=== PATIENT | female | born 1960 | race Caucasian/White ===

== ENCOUNTER 2020-01-21 03:47 | Emergency (ER) | payer OTHER, SELFPAY ==
--- OUTSIDE RECORDS SUMMARY | 2020-01-21 03:50 | XMS REPORT ---
:1960 Author Organization [facility] t Address [address] [place] [address] Care Team Providers Name Role Phone Unavailable Unavailable Unavailable Problems This patient has no known problems. Allergies, Adverse Reactions, Alerts This patient has no known allergies or adverse reactions. Medications This patient has no known medications. Results Test Description Test Time Test Comments Text Results Atomic Results Result Comments CT, MAXILLOFACIAL AREA, 2019-06-13 08:03:00 FINAL REPO RT PATIENT ID: WITHOUT IV CONTRAST [id number] History: Fa cial numbness, disorder of hypoglossal nerve Comparison studies: Neck CT 01/02/2019. Brain MRI 01/02/2019. Technique:Axial images were obtained through the maxillofacial region.Coronal and sagittal images reconstructe d from the axial data. Dose modulation, iterative reconstruction, and/or weigh t based adjustment of the mA/k V was utilized to reduce the radiation dose to as low as reasonably achievable. Radiation dose: Total DLP: 2 52 mGy*cm. Estimated effective dose: DLP x 0.015 Intravenou s contrast: None Findings: Evaluation of the soft tissu es and vasculature are limited by the absence of IV contrast. Soft tissues: No gross abnormalit ies. Bones: No fractures or bony abnormalities. No lytic or blastic skull base lesion. Normal-appearing hypoglossal canals without osseous lesio n or bone erosion. Orbits: No hue ss abnormalities. Dentition A f ew absentee with a few dental fillings, root canals and le ft maxillary premolar dental implant. Subtle periapical lucency at the right second ventricular molar, unchanged . Middle ear mastoid cavities: Clear. Paranasal sinuses:Mil d right frontal, frontal ethmo idal recess and right anterior ethmoid mucosal thickening. Remaining sinuses are clear. Included cervical spine: Mil dly degenerated disks with small disc osteophyte complexes fr om C3 to C6 without significant canal stenosis. IMPRESSION: 1.No osseous skull base lesi on or other abnormalities to account for patient's sympto ms of facial numbness and hypoglossal nerve disorder o n this noncontrast exam. 2.Unchanged mild chronic nonspecific right frontal-ethmoidal mucosal thickening. Signed: Conrad Frederick Verified Date/Time: 06/13/2019 08:03 :56 Reading Location: [facility] Room [address] [place] [address] 08:0 3 AM
--- OUTSIDE RECORDS SUMMARY | 2020-01-21 03:50 | XMS REPORT | Summary of Care ---
:1960 Author Organization [facility] [place] [address] Care Team Providers Name Role Phone [facility] Primary Care Provider Reason for Visit Reason Comments Follow Up Encounter Details Date Type Department Care Team Description 06/12/[address] [facility] Follow Up Medicine Neurology [address], [address] [place] [address] [place] [address] [phone] Allergies Active Allergy Reactions Severity Noted Date Comments Hydrocodone Itching Low 11/25/2018 documented as of this encounter (statuses as of 06/12/2019) Medications Medication Sig Dispensed Refills Start Date End Date Status amphetamine-dextroamphe Take 30 mg by 0 Active tamine (ADDERALL) 30 MG mouth daily. 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 Never 11/25/2018 How many drinks containing alcohol do you have on a typical Not asked day when you are drinking? How often do you have six or more drinks on one occasion? No t asked Sex Assigned at Date Recorded Not on file Job Start Date Occupation Industry Not on file Not on file Not on file Travel History Travel Start Travel End No recent travel history available. documented as of this encounter Last Filed Vital Signs Vital Sign Reading Time Taken Comments Blood Pressure 177/92 06/12/2019 4:12 PM CDT Pulse 75 06/12/2019 4:12 PM CDT Temperature - - Respiratory Rate - - Oxygen Saturation - - Inhaled Oxygen Concentration - - Weight 81.2 kg (179 lb) 06/12/2019 4:12 PM CDT Height 167.6 cm (5' 6") 06/12/2019 4:12 PM CDT Body Mass Index 28.89 06/12/2019 4:12 PM CDT documented in this encounter Progress Notes Ted Rodriguez MD - 06/12/2019 4:00 PM CDT CC: Chief Complaint Patient presents with Follow Up KALYAN 02/21/19 Accompanied by: Self HPI: 58 y.o.female presenting for evaluation of R facial and tongue numbness since Aug 2018. Interim hx: No change in symptoms since last visit CT face performed today but official read pending today. this Wednesday. Planning on going to [facility] next week. Not interested in meds at this time Initial hx: She states she is unable to touch roof of mouth with tongue. When she eats, food caught in corners of mouth Also feels that she's drooling Reports facial itching on R side of face "like it's trying to wake up". Feels that she's producing more saliva. "I feel like my tongue is numb". Face feels "tight"- "it feels like botox". Exacerbation with anger. Facial tightness migrates. Exacerbated with talking. If she sticks her tongue out it feels "tight", hard to protrude. Denies change in speech No abnormal tearing No shooting pain in face No difficulty turning head Denies M[place], no diurnal pattern Wonders if she had a sore throat at symptom onset in Aug 2018 Overall, unchanged symptoms since Aug 2018. Has not taken meds for these symptoms. Took adderall for cognitive concerns which was ineffective and she has since discontinued. She later stated that she intermittently takes it to avoid snacking andwith extreme fatigue. No vitamins/herbal supplements, no recent travel. She believes aspirin helps her symptoms Odynophagia: no Dysphagia: no Hearing loss/hyperacusis: no Ear pain: no Taste: unchanged Smell: unchanged Tinnitus (pulsatile tinnitus): rare Vertigo: no Occ dizziness: attributes to lack of sleep (rotates q2h)- intermittent Neck movement: no change Muscle twitching/spasms: R eye x several months Vision change: denies, will see national secretary in 3 wks Dental issues: no Weight loss/fever/chills: no Sympathetic/autonomic: no change Occasional anxiety associated with CP. Not on therapy. Referred from Dr. Goode: Seen on 11/25/18 B wwo with incidental small L frontal DVA. PMH/PSH: Past Medical History: Diagnosis Date Stomach ulcer No past surgical history on file. ROS: General: no fevers or chills, no heat or cold intolerance, no subjective weight loss, no fatigue HEENT: no changes in vision, no sore throat, no changes in hearing, no tinnitus, no nasal drainage CV: no chest pain, no palpitations, no lightheadedness, no PND, no orthopnea, no LE swelling, no claudication Pulm: no shortness of breath, no cough, no hemoptysis GI: no nausea, no vomiting, no abdominal pain, no constipation, no diarrhea, no melena, no hematochezia, no dysphagia, no heartburn Skin: no rash Neuro: see HPI Musculoskeletal: no neck pain, no back pain Heme: no easy bruising, no bleeding from the gums Endo: No polyuria or polydypsia Psych: no depression or anxiety Meds/All: Current Outpatient Medications on File Prior to Visit Medication Sig Dispense Refill amphetamine-dextroamphetamine (ADDERALL) 30 MG tablet Take 30 mg by mouth daily. No current facility-administered medications on file prior to visit. 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 Gen: awake, alert, NAD Pt left without being examined Labs/Imaging: MRB wwo 12/2018: 1. Incidental small left frontal DVA of no clinical significance. 2. Otherwise, no intracranial or skull base abnormalities. CT neck 12/2018: No mass or abnormalities identified in the neck to account for patient's symptoms of facial numbness, globus or hypoglossal nerve palsy. MRA H&N 02/2019: No cervical or intracranial MRA abnormalities. A/P: 58 y.o. female presenting for evaluation of R facial and tongue numbness since Aug 2018. Current symptoms and exam can be localized to the brainstem and area along the pathway of CN12 and 5 near the jaw. Recent MRI brain and MRA unrevealing. Ddx also includes trigeminal neuropathy. - CT face official read pending - Consider MRV H&N - Consider repeat MRB with thin cuts through the brainstem - Consider autoimmune panel, LDH, ESR, CRP, AZAM, SPEP - Consider LP - Optometry as previously scheduled - BP monitoring Pt left before all options discussed I personally spent a total of 15 minutes with the patient with 15 minutes spent in counseling and coordination of care. A discussion regarding diagnosis and treatment options was held. Ted Rodriguez MD documented in this encounter Plan of Treatment Health Maintenance Due Date Last Done Comments COLON CANCER SCREENING: COLONOSCOPY 1960 MAMMOGRAM ANNUAL 1960 TETANUS SHOT (ADULT) 1977 BMI FOLLOW UP PLAN 1980 HEPATITIS C SCREENING 1980 HIV SCREENING 1980 CERVICAL CANCER SCREENING 3 YEAR FOLLOW UP 1983 FLU VACCINE > 6 MONTHS 04/20/2019 documented as of this encounter Results Not on filedocumented in this encounter Visit Diagnoses Diagnosis Numbness of tongue - Primary Disturbance of skin sensation Right facial numbness Disturbance of skin sensation Hypoglossal nerve palsy Disorders of hypoglossal (12th) nerve documented in this encounter Insurance Payer Benefit Plan / Subscriber ID Effective Dates Phone Addre ss Type Group [facility] - xxxxxxxxxxx Effective for PO ROXIE X [id number] EPO [facility] [place] [address] documented as of this encounter
[2020-01-21] MEDS ORDERED: MORPHINE 4 MG/ML SYR ONE ×2 (04:29→05:29)
[2020-01-21] MEDS ORDERED: NA CHLORIDE 0.9% 1,000 ML ONE (04:29)
[2020-01-21] MEDS ORDERED: FAMOTIDINE 20 MG/2 ML VIAL IV ONE (04:29)
[2020-01-21] MEDS ORDERED: ONDANSETRON 4 MG/2 ML VIAL ONE (04:30)
[2020-01-21 04:43] LABS: Absolute Lymphocytes (CBC) 2.1 K/uL (0.7-4.9); Hematocrit 40.1 % (36.0-45.0); Lymphocytes % 20.8 % (15.3-44.8); MPV 7.6 fL (7.6-11.3); RBC Red Blood Cell Count 4.67 M/uL (3.86-4.86)
[2020-01-21 05:04] LABS: ALT/SGPT 17 U/L (12-78); AST/SGOT 13 U/L (15-37); Albumin 3.3 g/dL (3.4-5.0); Alkaline Phosphatase 84 U/L (45-117); BUN Blood Urea Nitrogen 18 mg/dL (7-18); Bicarbonate 27 mmol/L (21-32); Bilirubin Direct < 0.1 mg/dL (0-0.2); Bilirubin Total 0.1 mg/dL (0.2-1.0); Glucose Level 93 mg/dL (74-106); Lipase 132 U/L (73-393); Potassium 4.4 mmol/L (3.5-5.1); Protein, Total 7.4 g/dL (6.4-8.2); Sodium Level 143 mmol/L (136-145)
--- NOTE | 2020-01-21 06:38 | EDPHYS ---
Physician Documentation [facility] Name: Valerie Gandara Age: 59 yrs Sex: Female : 1960 Arrival Date: 01/21/2020 Time: 03:50 Bed 5 Private MD: ED Physician Yoni Valencia HPI: 01/20 04:19 This 59 yrs old Female presents to ER via Ambulatory with complaints of prabha Abdominal Pain. 04:19 The patient presents with abdominal pain in the epigastric area, in the upper abdomen, prabha abdominal distention in the upper abdomen, in the lower abdomen. Onset: The symptoms/episode began/occurred 14 day(s) ago. The symptoms do not radiate. Associated signs and symptoms: Pertinent positives: nausea. The symptoms are described as constant, crampy, dull. Modifying factors: The symptoms are alleviated by nothing, the symptoms are aggravated by nothing. Severity of pain: At its worst the pain was moderate in the emergency department the pain is unchanged. The patient has experienced similar episodes in the past, several times. Historical: - Allergies: 04:22 No Known Allergies; lp1 - Home Meds: 04:19 lorazepam 1 mg Oral tab 2 times per day [Active]; Adderall XR Oral [Active]; lp1 - PMHx: 04:22 "bleeding ulcers"; lp1 - PSHx: 04:19 lap band; lp1 - Immunization history:: Adult Immunizations up to date. - Social history:: Smoking status: Patient denies any tobacco usage or history of. - Family history:: not pertinent. ROS: 04:19 Constitutional: Negative for fever, chills, and weight loss, Eyes: Negative for injury, prabha pain, redness, and discharge, ENT: Negative for injury, pain, and discharge, Neck: Negative for injury, pain, and swelling, Cardiovascular: Negative for chest pain, palpitations, and edema, Respiratory: Negative for shortness of breath, cough, wheezing, and pleuritic chest pain, Back: Negative for injury and pain, : Negative for injury, bleeding, discharge, and swelling, MS/Extremity: Negative for injury and deformity, Skin: Negative for injury, rash, and discoloration, Neuro: Negative for headache, weakness, numbness, tingling, and seizure, Psych: Negative for depression, anxiety, suicide ideation, homicidal ideation, and hallucinations, Allergy/Immunology: Negative for hives, rash, and allergies, Endocrine: Negative for neck swelling, polydipsia, polyuria, polyphagia, and marked weight changes, Hematologic/Lymphatic: Negative for swollen nodes, abnormal bleeding, and unusual bruising. 04:19 Abdomen/GI: Positive for abdominal pain, nausea, of the epigastric area, right upper quadrant and left upper quadrant. Exam: 04:19 Constitutional: This is a well developed, well nourished patient who is awake, alert, prabha and in no acute distress. Head/Face: Normocephalic, atraumatic. Eyes: Pupils equal round and reactive to light, extra-ocular motions intact. Lids and lashes normal. Conjunctiva and sclera are non-icteric and not injected. Cornea within normal limits. Periorbital areas with no swelling, redness, or edema. ENT: Nares patent. No nasal discharge, no septal abnormalities noted. Tympanic membranes are normal and external auditory canals are clear. Oropharynx with no redness, swelling, or masses, exudates, or evidence of obstruction, uvula midline. Mucous membranes moist. Neck: Trachea midline, no thyromegaly or masses palpated, and no cervical lymphadenopathy. Supple, full range of motion without nuchal rigidity, or vertebral point tenderness. No Meningismus. Chest/axilla: Normal chest wall appearance and motion. Nontender with no deformity. No lesions are appreciated. Cardiovascular: Regular rate and rhythm with a normal S1 and S2. No gallops, murmurs, or rubs. Normal PMI, no JVD. No pulse deficits. Respiratory: Lungs have equal breath sounds bilaterally, clear to auscultation and percussion. No rales, rhonchi or wheezes noted. No increased work of breathing, no retractions or nasal flaring. Back: No spinal tenderness. No costovertebral tenderness. Full range of motion. Female : Normal external genitalia. Skin: Warm, dry with normal turgor. Normal color with no rashes, no lesions, and no evidence of cellulitis. MS/ Extremity: Pulses equal, no cyanosis. Neurovascular intact. Full, normal range of motion. Neuro: Awake and alert, GCS 15, oriented to person, place, time, and situation. Cranial nerves II-XII grossly intact. Motor strength 5/5 in all extremities. Sensory grossly intact. Cerebellar exam normal. Normal gait. Psych: Awake, alert, with orientation to person, place and time. Behavior, mood, and affect are within normal limits. 04:19 Abdomen/GI: Inspection: abdomen appears normal, Bowel sounds: normal, Palpation: mild abdominal tenderness, moderate abdominal tenderness, in the epigastric area, right upper quadrant and left upper quadrant, Liver: no appreciated palpable abnormalities, Hernia: not appreciated. 04:35 ECG was reviewed by the Attending Physician. [facility] Vital Signs: 04:15 Weight 88.45 kg (R); Height 5 ft. 6 in. (167.64 cm); Pain 9/10; lp1 04:18 BP 137 / 77; Pulse 58; Resp 17 S; Temp 98.3(O); Pulse Ox 99% on R/A; Weight 86.18 kg; jd3 Height 5 ft. 6 in. (167.64 cm); Pain 7/10; 05:28 BP 152 / 79; Pulse 51; Resp 18 S; Pulse Ox 100% on R/A; jd3 06:59 BP 108 / 63; Pulse 52; Resp 16 S; Pulse Ox 95% on R/A; jd3 04:18 Body Mass Index 30.67 (86.18 kg, 167.64 cm) jd3 MDM: 04:13 Patient medically screened. [facility] 04:24 Differential diagnosis: bowel obstruction, cholecystitis, Cholelithiasis, prabha diverticulitis, gastritis, gastroesophageal reflux disease, non-specific abd pain, Peptic Ulcer Disease. Data interpreted: monitoring coordinator: rate is 58 beats/min, Pulse oximetry: on room air is 99 %. Test interpretation: by ED physician or midlevel provider: ECG, plain radiologic studies. Counseling: I had a detailed discussion with the patient and/or guardian regarding: the historical points, exam findings, and any diagnostic results supporting the discharge/admit diagnosis, lab results, radiology results. 04:25 Data reviewed: vital signs, nurses notes, lab test result(s), EKG, radiologic studies, [facility] CT scan, plain films. 05:47 Response to treatment: the patient's symptoms have markedly improved after treatment. prabha 06:33 ED course: abd pain, eipgastric, hx of band, labs all normal, ct abd and pel nad. [facility] 01/20 04:18 Order name: Basic Metabolic Panel; Complete Time: 05:37 [facility] 01/20 04:18 Order name: CBC with Diff; Complete Time: 05:37 [facility] 01/20 04:18 Order name: Creatinine for Radiology; Complete Time: 05:37 [facility] 01/20 04:18 Order name: Hepatic Function; Complete Time: 05:37 [facility] 01/20 04:18 Order name: Lipase; Complete Time: 05:37 [facility] 01/20 05:46 Order name: Troponin (emerg Dept Use Only): co epi pain , cp; Complete Time: 06:30 [facility] 01/20 04:18 Order name: Chest Single View XRAY [facility] 01/20 04:18 Order name: CT Abd/Pelvis - PO and IV Contrast [facility] 01/20 06:03 Order name: Urine Dipstick--Ancillary (enter results) ds4 01/20 04:18 Order name: IV Saline Lock; Complete Time: 04:31 [facility] 01/20 04:18 Order name: Labs collected and sent; Complete Time: 04:31 [facility] 01/20 04:18 Order name: EKG; Complete Time: 04:19 [facility] 01/20 04:18 Order name: EKG - Nurse/Tech; Complete Time: 04:30 [facility] EC:35 Rate is 65 beats/min. Rhythm is regular. QRS [place] is Normal. GA interval is normal. QRS prabha interval is normal. QT interval is normal. Q waves are Present in leads V1, V2, V3, V4. T waves are Normal. No ST changes noted. Clinical impression: Anterior WI - age indeterminate. Interpreted by me. Reviewed by me. Administered Medications: 04:36 Drug: NS 0.9% 1000 ml Route: IV; Rate: 1 bolus; Site: right antecubital; mg2 05:30 Follow up: Response: No adverse reaction; IV Status: Completed infusion; IV Intake: jd3 1000ml 04:37 Drug: Pepcid 20 mg Route: IVP; Site: right antecubital; mg2 05:10 Follow up: Response: No adverse reaction jd3 04:37 Drug: morphine 4 mg Route: IVP; Site: right antecubital; mg2 05:10 Follow up: Response: No adverse reaction; RASS: Alert and Calm (0) jd3 04:37 Drug: Zofran (Ondansetron) 4 mg Route: IVP; Site: right antecubital; mg2 05:11 Follow up: Response: No adverse reaction jd3 05:28 Drug: morphine 4 mg Route: IVP; Site: right antecubital; jd3 06:02 Follow up: Response: No adverse reaction; Marked relief of symptoms; RASS: Alert and mg2 Calm (0) Disposition: 01/21/20 06:37 Discharged to Home. Impression: Abdominal tenderness, Functional dyspepsia - hx gastric banding. - Condition is Stable. - Discharge Instructions: Abdominal Pain, Adult, Abdominal Pain, Adult, [id number]. - Prescriptions for Bentyl 20 mg Oral Tablet - take 1 tablet by ORAL route every 6 hours As needed; 20 tablet. Protonix 40 mg Oral Tablet, Delayed Release (E.C.) - take 1 tablet by ORAL route once daily; 20 tablet. Zofran 4 mg Oral Tablet - take 1 tablet by ORAL route every 12 hours As needed; 20 tablet. - Medication Reconciliation Form, Thank You Letter, Antibiotic Education, Prescription Opioid Use form. - Follow up: Private Physician; When: 2 - 3 days; Reason: Recheck today's complaints, Continuance of care, Re-evaluation by your physician. - Problem is new. - Symptoms have improved. Signatures: Dispatcher [employer] EDMS Yoni Valencia MD MD cha Pena, Laura RN RN lp1 Juan Alicea RN RN Buzz Rivera RN RN mg2 Corrections: (The following items were deleted from the chart) 04:22 04:19 Allergies: HYDROCODONE; lp1 lp1 04:22 04:19 PMHx: None; lp1 lp1 07:01 06:37 01/21/2020 06:37 Discharged to Home. Impression: Abdominal tenderness; Functional jd3 dyspepsia - hx gastric banding. Condition is Stable. Forms are Medication Reconciliation Form, Thank You Letter, Antibiotic Education, Prescription Opioid Use. Follow up: Private Physician; When: 2 - 3 days; Reason: Recheck today's complaints, Continuance of care, Re-evaluation by your physician. Problem is new. Symptoms have improved. prabha
--- NOTE | 2020-01-21 06:38 | ER ---
Nurse's Notes [facility] Name: Valerie Gandara Age: 59 yrs Sex: Female : 1960 Arrival Date: 01/21/2020 Time: 03:50 Bed 5 Private MD: Diagnosis: Abdominal tenderness;Functional dyspepsia-hx gastric banding Presentation: 01/20 04:15 Chief complaint: Patient states: Epigastric pain x 2 weeks; Denies any nausea, lp1 vomiting, diarrhea, fever; States "I feel like my lap band might have moved". Coronavirus screen: Proceed with normal triage. Ebola Screen: No symptoms or risks identified at this time. Risk Assessment: Do you want to hurt yourself or someone else? Patient reports no desire to harm self or others. Onset of symptoms was January 21, 2020. 04:15 Method Of Arrival: Ambulatory lp1 04:15 Acuity: PARMINDER 3 lp1 04:22 Initial Sepsis Screen: Does the patient meet any 2 criteria? No. Patient's initial lp1 sepsis screen is negative. Does the patient have a suspected source of infection? No. Patient's initial sepsis screen is negative. Historical: - Allergies: 04:22 No Known Allergies; lp1 - Home Meds: 04:19 lorazepam 1 mg Oral tab 2 times per day [Active]; Adderall XR Oral [Active]; lp1 - PMHx: 04:22 "bleeding ulcers"; lp1 - PSHx: 04:19 lap band; lp1 - Immunization history:: Adult Immunizations up to date. - Social history:: Smoking status: Patient denies any tobacco usage or history of. - Family history:: not pertinent. Screenin:22 Abuse screen: Denies threats or abuse. Denies injuries from another. Nutritional lp1 screening: No deficits noted. Tuberculosis screening: No symptoms or risk factors identified. Fall Risk None identified. Assessment: 04:43 General: Appears in no apparent distress. comfortable, Behavior is calm, cooperative. mg2 Pain: Complains of pain in epigastric area Pain currently is 8 out of 10 on a pain scale. Quality of pain is described as aching, Pain began gradually. Neuro: Level of Consciousness is awake, alert, obeys commands, Oriented to person, place, time, situation. Cardiovascular: Capillary refill < 3 seconds Patient's skin is warm and dry. Respiratory: Airway is patent Respiratory effort is even, unlabored, Respiratory pattern is regular, symmetrical. GI: Bowel sounds present X 4 quads. Abd is soft and non tender Reports epigastric pain. : No signs and/or symptoms were reported regarding the genitourinary system. EENT: No signs and/or symptoms were reported regarding the EENT system. Derm: Skin is intact, is healthy with good turgor, Skin is pink, warm \\T\\ dry. normal. Musculoskeletal: Circulation, motion, and sensation intact. Capillary refill < 3 seconds. 05:28 Reassessment: Patient and/or family updated on plan of care and expected duration. Pain jd3 level reassessed. Patient is alert, oriented x 3, equal unlabored respirations, skin warm/dry/pink. pt reporting continued pain. 05:47 Reassessment: patient sent to ct scan via wheelchair. mg2 06:59 Reassessment: Patient appears in no apparent distress at this time. Patient and/or d3 family updated on plan of care and expected duration. Pain level reassessed. Patient is alert, oriented x 3, equal unlabored respirations, skin warm/dry/pink. pt reporting understanding of discharge instructions, even and steady gait upon discharge. Patient states feeling better. Vital Signs: 04:15 Weight 88.45 kg (R); Height 5 ft. 6 in. (167.64 cm); Pain 9/10; lp1 04:18 BP 137 / 77; Pulse 58; Resp 17 S; Temp 98.3(O); Pulse Ox 99% on R/A; Weight 86.18 kg; jd3 Height 5 ft. 6 in. (167.64 cm); Pain 7/10; 05:28 BP 152 / 79; Pulse 51; Resp 18 S; Pulse Ox 100% on R/A; jd3 06:59 BP 108 / 63; Pulse 52; Resp 16 S; Pulse Ox 95% on R/A; jd3 04:18 Body Mass Index 30.67 (86.18 kg, 167.64 cm) jd3 ED Course: 03:50 Patient arrived in ED. ds1 04:11 Juan Alicea RN is Primary Nurse. jd3 04:13 Yoni Valencia MD is Attending Physician. prabha 04:17 Triage completed. lp1 04:17 Arm band placed on. lp1 04:35 Inserted saline lock: 20 gauge in right antecubital area, using aseptic technique. mg2 Blood collected. 04:39 No provider procedures requiring assistance completed. mg2 04:46 Chest Single View XRAY In Process Unspecified. EDMS 04:52 Patient has correct armband on for positive identification. mg2 06:05 CT Abd/Pelvis - PO and IV Contrast In Process Unspecified. EDMS 06:58 IV discontinued, intact, bleeding controlled, No redness/swelling at site. Pressure jd3 dressing applied. Administered Medications: 04:36 Drug: NS 0.9% 1000 ml Route: IV; Rate: 1 bolus; Site: right antecubital; mg2 05:30 Follow up: Response: No adverse reaction; IV Status: Completed infusion; IV Intake: jd3 1000ml 04:37 Drug: Pepcid 20 mg Route: IVP; Site: right antecubital; mg2 05:10 Follow up: Response: No adverse reaction jd3 04:37 Drug: morphine 4 mg Route: IVP; Site: right antecubital; mg2 05:10 Follow up: Response: No adverse reaction; RASS: Alert and Calm (0) jd3 04:37 Drug: Zofran (Ondansetron) 4 mg Route: IVP; Site: right antecubital; mg2 05:11 Follow up: Response: No adverse reaction jd3 05:28 Drug: morphine 4 mg Route: IVP; Site: right antecubital; jd3 06:02 Follow up: Response: No adverse reaction; Marked relief of symptoms; RASS: Alert and mg2 Calm (0) Intake: 05:30 IV: 1000ml; Total: 1000ml. jd3 Outcome: 06:37 Discharge ordered by . prabha 06:58 Discharged to home ambulatory, with family. jd3 06:58 Condition: stable 06:58 Discharge instructions given to patient, Instructed on discharge instructions, follow up and referral plans. medication usage, Demonstrated understanding of instructions, follow-up care, medications, Prescriptions given X 3. 07:01 Patient left the ED. jd3 Signatures: Dispatcher [employer] EDMS Yoni Valencia MD MD cha Sanford, Demi ds1 Sarahy Mcgee RN RN lp1 Juan Alicea RN RN jd3 Buzz Browne RN RN mg2 Corrections: (The following items were deleted from the chart) 04:19 Allergies: HYDROCODONE; lp1 lp1 04: 04:19 PMHx: None; lp1 lp1 07: 07:00 Response: No adverse reaction; IV Status: Completed infusion; IV Intake: 1000ml jd3 jd3
[2020-01-21 07:25] VITALS: TEMP 98.3
[2020-01-21 07:27] VITALS: BP 108/63; O2SAT 95
[2020-01-21 07:42] LABS: Urine Blood TRACE (NEG); Urine Glucose NEGATIVE (NEG); Urine Protein NEGATIVE (NEG)
--- NOTE | 2020-01-21 12:05 | RAD REPORT ---
EXAM DESCRIPTION: RAD - Chest Single View - 01/21/2020 4:45 am CLINICAL HISTORY: ABDOMINAL DISTENTION Chest pain. COMPARISON: Chest Pa And Lat (2 Views) dated 05/05/2018; Chest Single View dated 10/24/2017; Chest Sing le View dated 10/21/2017; Chest Pa And Lat (2 Views) dated 02/17/2017 FINDINGS: Portable technique limits examination quality. The lungs are grossly clear. The heart is normal in size. No displaced fractures. IMPRESSION: No acute intrathoracic process suspected.
--- NOTE | 2020-01-21 12:50 | RAD REPORT ---
EXAM DESCRIPTION: Abdomen Pelvis W Contrast CLINICAL HISTORY: ABD PAIN COMPARISON: None. TECHNIQUE: CT ABDOMEN PELVIS WITH IV CONTRAST on 01/21/2020 4:18 AM CDT This exam was performed according to our departmental dose-optimization program, which includes autom ated exposure control, adjustment of the mA and/or kV according to patient size and/or use of iterati ve reconstruction technique. FINDINGS: Lower lungs are clear. Abdomen: There is a approximately 1 cm low-density right hepatic lobe lesion near the diaphragm, too small to characterize. There is no biliary dilatation. Gallbladder is normal in appearance. Gastric b anding was performed. The pancreas and spleen are normal in appearance. The adrenal glands and kidney s are unremarkable. Abdominal aorta is normal in course and caliber without aneurysm. There is no free air. There is no r etroperitoneal adenopathy. Pelvis: There is no bowel obstruction. Urinary bladder is unremarkable. There is no free fluid. Appen roxanne is normal. Uterus is normal in appearance. Skeleton: There are no acute osseous findings. No suspicious bony lesions. IMPRESSION: No acute inflammatory process. Electronically signed by: Nicolas Potter MD 01/21/2020 6:23 AM CDT Due to temporary technical issues with the PACS/Fluency reporting system, reports are being signed by the in house radiologist as a courtesy to ensure prompt reporting. The interpreting radiologist is f ully responsible for the content of the report.
--- NOTE | 2020-01-22 10:52 | EKG ---
Test Date: 2020-01-21 Test Time: 04:30:40 Public Relations Account Supervisor: NASIM MEASUREMENT RESULTS: Intervals: Rate: 65 IA: 154 QRSD: 86 QT: 378 QTc: 393 [place]: P: 32 IA: 154 QRS: 41 T: 7 INTERPRETIVE STATEMENTS: Normal sinus rhythm Cannot rule out Anterior infarct, age undetermined Abnormal ECG Compared to ECG 10/24/2017 19:33:34 Myocardial infarct finding now present T-wave abnormality no longer present Possible ischemia no longer present Electronically Signed On 01-22-20 10:49:19 CDT by Konstantin Silva
== END 2020-01-21 07:01 | disposition home or self-care (01) ==
LOC: ER 03:47
DX: K30 Functional dyspepsia (principal); Z98.84 Bariatric surgery status
CPT/HCPCS: 36415; 71045; 74177; 80048; 80076; 81003; 83690; 84484; 85025; 93005; 96361; 96374; 96375; 99284; J2405; J7030; Q9967

== ENCOUNTER 2021-01-28 21:43 | Emergency (ER) | payer SELFPAY ==
--- OUTSIDE RECORDS SUMMARY | 2021-01-28 21:46 | XMS REPORT | Continuity of Care Document ---
:1960 Author Organization [facility] t Address [address] [place] [address] Care Team Providers Name Role Phone Michael COLLINS Attending Clinician Problems This patient has no known problems. Allergies, Adverse Reactions, Alerts This patient has no known allergies or adverse reactions. Social History Social Habit Start Date Stop Date Quantity Comments Source Sex Assigned At [facility] Medications This patient has no known medications. Procedures This patient has no known procedures. Plan of Care Planned Activity Planned Date Details Comments Source Future Scheduled 2022-11-[address] [facility] - Test 00:00:00 (procedure) [code = [facility] 46898913] Future Scheduled 2020-05-[address] [facility] - Test 00:00:00 (#1) [code = [facility] INFLUENZA VACCINE (#1)] Future Scheduled [address] [facility] - Test 00:00:00 malignant neoplasm Medical C enter of cervix (procedure) [code = 825273620] Future Scheduled [address] [facility] - Test 00:00:00 malignant neoplasm Medical C enter of colon (procedure) [code = 393665816] Future Scheduled [address] [facility] - Test 00:00:00 malignant neoplasm Medical C enter of breast (procedure) [code = 139724913] Encounters Start End Encounter Admission Attending Care Care Encounter Source Date/Time Date/Time Type Type Clinicians Facility Department ID 2019-06-12 2019-06-12 Office KARL Rodriguez [id number] 45 14:33:53 15:03:53 Visit Ted AMBULATOR [id number] Y [id number] Results Test Description Test Time Test Comments Results Result [facility] rayray Comments CT, MAXILLOFACIAL 2019-06-13 FINAL REPORT PATIENT AREA, WITHOUT IV 08:03:00 ID: [id number] CONTRAST History: Facial numbness, disorder of hypoglossal nerve Comparison studies: Neck CT 01/02/2019. Brain MRI 01/02/2019. Technique:Axial images were obtained through the maxillofacial region.Coronal and sagittal images reconstructed from the axial data. Dose modulation, iterative reconstruction, and/or weight based adjustment of the mA/kV was utilized to reduce the radiation dose to as low as reasonably achievable. Radiation dose: Total DLP: 252 mGy*cm. Estimated effective dose: DLP x 0.015 Intravenous contrast: None Findings: Evaluation of the soft tissues and vasculature are limited by the absence of IV contrast. Soft tissues: No gross abnormalities. Bones: No fractures or bony abnormalities. No lytic or blastic skull base lesion. Normal-appearing hypoglossal canals without osseous lesion or bone erosion. Orbits: No gross abnormalities. Dentition A few absentee with a few dental fillings, root canals and left maxillary premolar dental implant. Subtle periapical lucency at the right second ventricular molar, unchanged. Middle ear mastoid cavities: Clear. Paranasal sinuses:Mild right frontal, frontal ethmoidal recess and right anterior ethmoid mucosal thickening. Remaining sinuses are clear. Included cervical spine: Mildly degenerated disks with small disc osteophyte complexes from C3 to C6 without significant canal stenosis. IMPRESSION: 1.No osseous skull base lesion or other abnormalities to account for patient's symptoms of facial numbness and hypoglossal nerve disorder on this noncontrast exam. 2.Unchanged mild chronic nonspecific right frontal-ethmoidal mucosal thickening. Signed: Conrad Frederick MDReport Verified Date/Time: 06/13/2019 08:03:56 Reading Location: [facility] Room [address] [place] [address]
[2021-01-28 23:00] LABS: Absolute Lymphocytes (CBC) 2.6 K/uL (0.7-4.9); Basophils % 1.2 % (0-1.3); Hematocrit 37.9 % (36.0-45.0); Lymphocytes % 35.9 % (15.3-44.8); MPV 7.6 fL (7.6-11.3); RBC Red Blood Cell Count 4.44 M/uL (3.86-4.86)
[2021-01-28 23:10] LABS: ALT/SGPT 16 U/L (12-78); AST/SGOT 15 U/L (15-37); Albumin 3.4 g/dL (3.4-5.0); Alkaline Phosphatase 78 U/L (45-117); BUN Blood Urea Nitrogen 14 mg/dL (7-18); Bicarbonate 28 mmol/L (21-32); Bilirubin Direct < 0.1 mg/dL (0-0.2); Bilirubin Total 0.1 mg/dL (0.2-1.0); Glucose Level 100 mg/dL (74-106); Lipase 168 U/L (73-393); Sodium Level 142 mmol/L (136-145)
[2021-01-29] MEDS ORDERED: MORPHINE 4 MG/ML SYR ONE (00:36)
[2021-01-29] MEDS ORDERED: ONDANSETRON 4 MG/2 ML VIAL ONE (00:36)
--- NOTE | 2021-01-29 00:54 | ER ---
Nurse's Notes [facility] Name: Valerie Gandara Age: 60 yrs Sex: Female : 1960 Arrival Date: 01/28/2021 Time: 21:47 Bed 5 Private MD: Diagnosis: uterine fibroids Presentation: 01/28 22:04 Chief complaint: Patient states: she has been having low abdominal pain x 5 days with bb diarrhea and "spotted" one time yesterday denies dysuria, states she has been through menopause but her mother had ovarian cancer so she is concerned about that also left arm pain x 30 minutes. Coronavirus screen: At this time, the client does not indicate any symptoms associated with coronavirus-19. Ebola Screen: No symptoms or risks identified at this time. Initial Sepsis Screen: Does the patient meet any 2 criteria? No. Patient's initial sepsis screen is negative. Does the patient have a suspected source of infection? No. Patient's initial sepsis screen is negative. Risk Assessment: Do you want to hurt yourself or someone else? Patient reports no desire to harm self or others. Onset of symptoms was January 22, 2021. 22:04 Method Of Arrival: Ambulatory bb 22:04 Acuity: PARMINDER 3 bb Historical: - Allergies: 22:09 No Known Allergies; bb - Home Meds: 22:09 lorazepam 1 mg Oral tab 2 times per day [Active]; Adderall XR 15 mg oral cp24 1 cap bb once daily [Active]; - PMHx: 22:09 "bleeding ulcers"; insomnia; bb 22:09 GI Bleed; bb - PSHx: 22:09 lap band; surgery for ulcer; bb - Immunization history:: Adult Immunizations up to date, Client reports receiving the 2nd dose of the Covid vaccine. - Social history:: Smoking status: Patient denies any tobacco usage or history of. Patient/guardian denies using alcohol. Screenin:12 Abuse screen: Denies threats or abuse. Nutritional screening: No deficits noted. ea Tuberculosis screening: No symptoms or risk factors identified. Fall Risk None identified. Assessment: 23:12 General: Appears in no apparent distress. Behavior is calm, cooperative, appropriate ea for age. Pain: Complains of pain in abdomen. Neuro: Level of Consciousness is awake, alert, obeys commands, Oriented to person, place, time. Cardiovascular: Patient's skin is warm and dry. Respiratory: Airway is patent Respiratory effort is even, unlabored, Respiratory pattern is regular, symmetrical. GI: Abdomen is non-distended. Derm: Skin is pink, warm \\T\\ dry. 01/29 00:15 Reassessment: Patient appears in no apparent distress at this time. complaint of rr5 abdominal pain, Ed provider aware with order made and carried out. 01:15 Reassessment: reassess by ED provider with additional order made and for troponin test rr5 extracted and sent. 01:45 Reassessment: Patient appears in no apparent distress at this time. Patient is alert, rr5 oriented x 3, equal unlabored respirations, skin warm/dry/pink. discharge instruction given and explained without complaints made. Vital Signs: 01/28 22:04 BP 138 / 87; Pulse 68; Resp 16 S; Temp 98.5(O); Pulse Ox 97% on R/A; Weight 86.18 kg bb (R); Height 5 ft. 7 in. (170.18 cm) (R); Pain 7/10; 01/29 00:15 BP 136 / 85; Pulse 69; Resp 19; Pulse Ox 98% ; rr5 01:15 BP 129 / 62; Pulse 53; Resp 17; Pulse Ox 98% ; rr5 01:46 BP 111 / 52; Pulse 55; Resp 16; Pulse Ox 99% ; rr5 01/28 22:04 Body Mass Index 29.76 (86.18 kg, 170.18 cm) bb ED Course: 01/28 21:47 Patient arrived in ED. am4 22:07 Triage completed. bb 22:09 Arm band placed on Patient placed in an exam room, on a stretcher, on pulse oximetry. bb 22:14 Kenny Alanis is Primary Nurse. ak2 22:29 Les Sparks MD is Attending Physician. tw4 22:44 Inserted saline lock: 20 gauge in right antecubital area, using aseptic technique. jb5 Blood collected. 22:45 Basic Metabolic Panel Sent. jb5 22:45 CBC with Diff Sent. jb5 22:45 Hepatic Function Sent. jb5 22:45 Lipase Sent. jb5 23:00 US Pelvis Complete In Process Unspecified. EDMS 23:12 Patient has correct armband on for positive identification. Bed in low position. Call ea light in reach. Side rails up X2. 0512 00:54 Kinsey Alonzo MD is Referral Physician. tw4 01:45 No provider procedures requiring assistance completed. IV discontinued, intact, ea bleeding controlled, No redness/swelling at site. Pressure dressing applied. Administered Medications: 00:18 Drug: Zofran (Ondansetron) 4 mg Route: IVP; Site: right antecubital; rr5 01:45 Follow up: Response: No adverse reaction ea 00:20 Drug: morphine 4 mg {Note: rass 0.} Route: IVP; Site: right antecubital; rr5 01:45 Follow up: Response: No adverse reaction ea 01:10 Drug: TORadol (ketorolac) 30 mg Route: IVP; Site: right antecubital; rr5 01:45 Follow up: Response: No adverse reaction ea Outcome: 00:53 Discharge ordered by MD. tw4 01:45 Discharged to home ambulatory, with family. ea 01:45 Condition: stable 01:45 Discharge instructions given to patient, Instructed on discharge instructions, follow up and referral plans. Demonstrated understanding of instructions, follow-up care. 01:46 Patient left the ED. ea Signatures: Dispatcher [employer] EDRhona Montes, RN Theresa Ramirez jbDeepti Castro RN Les Sinclair ea, MD MD tw4 John Martin RN RN rr5 Nica Durham 4 Kenny Alanis [facility]
--- NOTE | 2021-01-29 00:54 | EDPHYS ---
Physician Documentation [facility] Name: Valerie Gandara Age: 60 yrs Sex: Female : 1960 Arrival Date: 01/28/2021 Time: 21:47 Bed 5 Private MD: ED Physician Les Sparks HPI: 01/28 23:33 This 60 yrs old Female presents to ER via Ambulatory with complaints of tw4 Abdominal Pain, Vaginal Bleeding. 23:33 This 60 yrs old Female presents to ER via Ambulatory with complaints of tw4 Abdominal Pain, Vaginal Bleeding. 23:33 The patient presents with vaginal bleeding that is light. Onset: The symptoms/episode tw4 began/occurred 2 day(s) ago. Historical: - Allergies: 22:09 No Known Allergies; bb - Home Meds: 22:09 lorazepam 1 mg Oral tab 2 times per day [Active]; Adderall XR 15 mg oral cp24 1 cap bb once daily [Active]; - PMHx: 22:09 "bleeding ulcers"; insomnia; bb 22:09 GI Bleed; bb - PSHx: 22:09 lap band; surgery for ulcer; bb - Immunization history:: Adult Immunizations up to date, Client reports receiving the 2nd dose of the Covid vaccine. - Social history:: Smoking status: Patient denies any tobacco usage or history of. Patient/guardian denies using alcohol. ROS: 23:41 Positive for vaginal bleeding. tw4 23:41 Constitutional: Negative for fever, chills, and weight loss, Eyes: Negative for injury, pain, redness, and discharge, Cardiovascular: Negative for chest pain, palpitations, and edema, Respiratory: Negative for shortness of breath, cough, wheezing, and pleuritic chest pain, Abdomen/GI: Negative for abdominal pain, nausea, vomiting, diarrhea, and constipation, Back: Negative for injury and pain, MS/Extremity: Negative for injury and deformity, Skin: Negative for injury, rash, and discoloration, Neuro: Negative for headache, weakness, numbness, tingling, and seizure. Exam: 23:41 Constitutional: This is a well developed, well nourished patient who is awake, alert, tw4 and in no acute distress. Head/Face: Normocephalic, atraumatic. Chest/axilla: Normal chest wall appearance and motion. Nontender with no deformity. No lesions are appreciated. Cardiovascular: Regular rate and rhythm with a normal S1 and S2. No gallops, murmurs, or rubs. Normal PMI, no JVD. No pulse deficits. Respiratory: Lungs have equal breath sounds bilaterally, clear to auscultation and percussion. No rales, rhonchi or wheezes noted. No increased work of breathing, no retractions or nasal flaring. Skin: Warm, dry with normal turgor. Normal color with no rashes, no lesions, and no evidence of cellulitis. MS/ Extremity: Pulses equal, no cyanosis. Neurovascular intact. Full, normal range of motion. Neuro: Awake and alert, GCS 15, oriented to person, place, time, and situation. Cranial nerves II-XII grossly intact. Motor strength 5/5 in all extremities. Sensory grossly intact. Cerebellar exam normal. Normal gait. 23:41 Abdomen/GI: Inspection: abdomen appears normal, Bowel sounds: normal, Palpation: moderate abdominal tenderness, in the suprapubic area. Vital Signs: 22:04 BP 138 / 87; Pulse 68; Resp 16 S; Temp 98.5(O); Pulse Ox 97% on R/A; Weight 86.18 kg bb (R); Height 5 ft. 7 in. (170.18 cm) (R); Pain 7/10; 12 00:15 BP 136 / 85; Pulse 69; Resp 19; Pulse Ox 98% ; rr5 01:15 BP 129 / 62; Pulse 53; Resp 17; Pulse Ox 98% ; rr5 01:46 BP 111 / 52; Pulse 55; Resp 16; Pulse Ox 99% ; rr5 05/11 22:04 Body Mass Index 29.76 (86.18 kg, 170.18 cm) bb MDM: 00:53 Patient medically screened. tw4 00:54 Differential diagnosis: dysmenorrhea, malignancy, menometrorrhagia, nonspecific tw4 abdominal pain, hemorrhage, uterine fibroids. Data reviewed: vital signs, nurses notes. Data reviewed: lab test result(s), CBC, electrolytes, radiologic studies, ultrasound. Data interpreted: Pulse oximetry: Interpretation: normal. Test interpretation: by ED physician or midlevel provider: plain radiologic studies. Counseling: I had a detailed discussion with the patient and/or guardian regarding: the historical points, exam findings, and any diagnostic results supporting the discharge/admit diagnosis. Special discussion: I discussed with the patient/guardian in detail that at this point there is no indication for admission to the hospital. It is understood, however, that if the symptoms persist or worsen the patient needs to return immediately for re-evaluation. 01/28 22:37 Order name: Basic Metabolic Panel; Complete Time: 23:31 tw4 01/28 23:31 Interpretation: Normal except: CL 109; GFR 55. tw4 01/28 22:37 Order name: CBC with Diff; Complete Time: 23:31 tw4 01/28 23:33 Interpretation: Within normal limits. tw4 01/28 22:37 Order name: Hepatic Function; Complete Time: 23:31 tw4 01/28 23:33 Interpretation: Normal except: BILIT 0.1; GLOB 3.6; A/G 0.9. tw4 01/28 22:37 Order name: Lipase; Complete Time: 23:31 tw4 01/28 23:33 Interpretation: Within normal limits: LIP 168. tw4 01/29 01:10 Order name: Troponin (emerg Dept Use Only) rr5 01/29 01:19 Order name: Urine Dipstick-Ancillary EDMS 01/28 22:37 Order name: IV Saline Lock; Complete Time: 22:45 tw4 01/28 22:37 Order name: Labs collected and sent; Complete Time: 22:45 tw4 01/28 22:37 Order name: US Pelvis Complete tw4 Administered Medications: 00:18 Drug: Zofran (Ondansetron) 4 mg Route: IVP; Site: right antecubital; rr5 01:45 Follow up: Response: No adverse reaction ea 00:20 Drug: morphine 4 mg {Note: rass 0.} Route: IVP; Site: right antecubital; rr5 01:45 Follow up: Response: No adverse reaction ea 01:10 Drug: TORadol (ketorolac) 30 mg Route: IVP; Site: right antecubital; rr5 01:45 Follow up: Response: No adverse reaction ea Disposition: 01/29/21 00:53 Discharged to Home. Impression: uterine fibroids. - Condition is Stable. - Discharge Instructions: Uterine Fibroids. - Medication Reconciliation Form, Thank You Letter, Antibiotic Education, Prescription Opioid Use form. - Follow up: Private Physician; When: Upon discharge from the Emergency Department; Reason: Recheck today's complaints, Continuance of care, Re-evaluation by your physician. Follow up: Kinsey Alonzo MD; When: Upon discharge from the Emergency Department; Reason: Recheck today's complaints, Continuance of care, Re-evaluation by your physician. - Problem is new. - Symptoms have improved. Signatures: Dispatcher [employer] EDMS Rhona Altamirano RN RN Deepti Alejandre RN RN ea Wadley, Terrence, MD MD tw4 John Martin RN RN rr5 Corrections: (The following items were deleted from the chart) 00:54 00:53 01/29/2021 00:53 Discharged to Home. Impression: uterine fibroids. Condition is tw4 Stable. Forms are Medication Reconciliation Form, Thank You Letter, Antibiotic Education, Prescription Opioid Use. Follow up: Private Physician; When: Upon discharge from the Emergency Department; Reason: Recheck today's complaints, Continuance of care, Re-evaluation by your physician. Problem is new. Symptoms have improved. tw4 01:46 00:54 01/29/2021 00:53 Discharged to Home. Impression: uterine fibroids. Condition is ea Stable. Discharge Instructions: Uterine Fibroids. Forms are Medication Reconciliation Form, Thank You Letter, Antibiotic Education, Prescription Opioid Use. Follow up: Private Physician; When: Upon discharge from the Emergency Department; Reason: Recheck today's complaints, Continuance of care, Re-evaluation by your physician. Follow up: Kinsey Alonzo; When: Upon discharge from the Emergency Department; Reason: Recheck today's complaints, Continuance of care, Re-evaluation by your physician. Problem is new. Symptoms have improved. tw4
[2021-01-29 01:19] LABS: Urine Blood 1+ (Negative); Urine Glucose Negative (Negative); Urine Protein Trace (Negative); Urine Specific Gravity >=1.030 (1.005-1.030); Urine pH 5.5 (5.0-7.0)
[2021-01-29] MEDS ORDERED: KETOROLAC 30 MG/ML INJ ONE (01:22)
--- NOTE | 2021-01-29 13:05 | RAD REPORT ---
EXAM DESCRIPTION: US Pelvis Complete CLINICAL HISTORY: 60 years Female VAGINAL BLEEDING COMPARISON: CT dated 01/21/2020 TECHNIQUE: Real-time and moreno scale transabdominal sonographic imaging was performed to evaluate the pelvis. FINDINGS: The uterus measures 8.1 x 4.7 x 6.2 cm while the endometrial stripe measures 4 mm in thick ness. Again seen are intramural uterine fibroids including a fundal fibroid measuring up to 2.2 cm. Neither ovary identified. No free fluid in the pelvis. IMPRESSION: Uterine fibroids again noted without endometrial thickening. Neither ovary identified. N o free fluid. Electronically signed by: Kayleigh Trotter MD 01/28/2021 11:14 PM CDT Due to temporary technical issues with the PACS/Fluency reporting system, reports are being signed by the in house radiologists without review as a courtesy to insure prompt reporting. The interpreting radiologist is fully responsible for the content of the report.
== END 2021-01-29 01:46 | disposition home or self-care (01) ==
LOC: ER 21:43
DX: D25.9 Leiomyoma of uterus, unspecified (principal)
CPT/HCPCS: 36415; 76856; 80048; 80076; 81003; 83690; 84484; 85025; 93005; 96374; 96375; 99284; J2405

== ENCOUNTER 2024-05-20 17:14 | Emergency (ER) | payer SELFPAY ==
[2024-05-20] MEDS ORDERED: ACETAMINOPHEN 500 MG TAB ONE (18:12)
[2024-05-20] MEDS ORDERED: NA CHLORIDE 0.9% 1,000 ML ONE (18:12)
--- NOTE | 2024-05-20 18:35 | RAD REPORT ---
EXAM DESCRIPTION: Lashawn Single View05/20/2024 6:23 pm CLINICAL HISTORY: Chest pain COMPARISON: 2021 FINDINGS: The lungs appear clear of acute infiltrate. The heart is normal size IMPRESSION: No acute abnormalities displayed
[2024-05-20 18:44] LABS: Absolute Lymphocytes (CBC) 0.6 K/uL (0.7-4.9); Absolute Monocytes 0.6 K/uL (0.1-1.3); Absolute Neutrophil 3.6 K/uL (1.8-8.0); Basophils % 0.5 % (0-1.3); Eosinophils % 0.5 % (0-4.4); Hemoglobin 12.5 g/dL (12.0-15.0); Lymphocytes % 13.1 % (15.3-44.8); MCH 28.1 pg (27.0-35.0); MCV 85.4 fL (80-100); MPV 7.2 fL (7.6-11.3); Monocytes % 11.8 % (3.3-12.3); Neutrophils % 74.1 % (41.7-73.7); Nucleated Red Blood Cells % 0.1 % (0-0); Platelets 201 thou/uL (152-406); RBC Red Blood Cell Count 4.45 M/uL (3.86-4.86); Red Cell Distribution Width 13.3 % (12.1-15.2)
[2024-05-20 18:54] LABS: PT Prothrombin Time 12.8 SECONDS (9.4-12.5); Protime INR 1.15
[2024-05-20 19:04] LABS: SARS-CoV-2 Antigen CONTROL BLUE LINE VIS/BG OK
[2024-05-20 19:04] LABS: ALT/SGPT 18 U/L (13-56); AST/SGOT 17 U/L (15-37); Albumin 3.3 g/dL (3.4-5.0); Alkaline Phosphatase 70 U/L (45-117); Anion Gap 9.1 mEq/L (5.0-15.0); BUN Blood Urea Nitrogen 13 mg/dL (7-18); Bicarbonate 25 mEq/L (21-32); Bilirubin Total 0.3 mg/dL (0.2-1.0); Globulin 3.4 g/dL (2.3-3.5); Glomerular Filtration Rate 53 ml/min (=/>90); Glucose Level 109 mg/dL (74-106); NT PRO-BNP 604 pg/mL (<125); Potassium 4.1 mEq/L (3.5-5.1); Protein, Total 6.7 g/dL (6.4-8.2); Sodium Level 137 mEq/L (136-145); Troponin High Sensitivity 3.6 pg/mL (<58.9)
[2024-05-20 19:05] LABS: SARS-CoV-2 Antigen Rapid Res Positive (Negative)
[2024-05-20 19:08] LABS: Bilirubin Direct < 0.2 mg/dL (0-0.2); Bilirubin Indirect, Calculated 0.1 mg/dL (0.2-0.8)
[2024-05-20] MEDS ORDERED: HYDROCODONE/CHLORPHEN 5 ML/OSYR ONE (20:23)
[2024-05-20 20:52] LABS: Specific Gravity 1.017 (1.005-1.030); Sqamous Epithelial <5 /HPF (None Seen); Urine Bacteria <20 /HPF (<20); Urine Bilirubin NEGATIVE (Negative); Urine Blood Trace (Negative); Urine Clarity Turbid (Clear); Urine Color Light-Yellow (Yellow); Urine Crystals Unidentified Few /HPF (None Seen); Urine Culture Reflex Order NOT NEEDED; Urine Glucose NEGATIVE (Negative); Urine Ketones 1+ (Negative); Urine Microscopic Reflex YN ORDER UMIC; Urine Mucus 1+ /HPF (None Seen); Urine Nitrite NEGATIVE (Negative); Urine Protein TRACE (Negative); Urine RBC <5 /HPF (None Seen); Urine Urobilinogen Normal (Normal); Urine WBC <5 /HPF (<5); Urine pH 5.5 (5.0-7.0)
[2024-05-20 21:04] LABS: Urine Yeast (Budding) Trace /HPF (None Seen)
[2024-05-20] MEDS ORDERED: KETOROLAC 30 MG/ML INJ ONE (21:40)
[2024-05-20] MEDS ORDERED: METOCLOPRAMIDE 10 MG/2mL INJ ONE (21:41)
[2024-05-20] MEDS ORDERED: DIPHENHYDRAMINE 50 MG/ML VIAL ONE (21:41)
--- NOTE | 2024-05-20 22:07 | RAD REPORT ---
EXAM DESCRIPTION: US - UPPER EXTREMITY VENOUS UNILATE - 05/20/2024 9:35 pm CLINICAL HISTORY: Pain COMPARISON: None. TECHNIQUE: Real-time sonographic evaluation of the left upper extremity deep venous system was perfo rmed. FINDINGS: Normal compressibility, flow augmentation, phasic flow and spontaneous flow is identified in the left upper extremity deep venous system. No intraluminal filling defects seen. IMPRESSION: No DVT in the left upper extremity.
--- NOTE | 2024-05-20 22:16 | ER ---
Nurse's Notes [facility] Name: Valerie Gandara Age: 63 yrs Sex: Female : 1960 Arrival Date: 05/20/2024 Time: 17:14 Bed 16 Private MD: Diagnosis: SARS-associated coronavirus as the cause of diseases classified elsewhere;Pain in left forearm;Chest pain, unspecified Presentation: 05/20 17:45 Chief complaint: Patient states: she has been having fever, chills, nausea, body aches ap3 that started three days ago and then left arm pain that started today. patient also reports thirst. patient states her current pain is an 8/10 on the pain scale. Coronavirus screen: Client presents with at least one sign or symptom that may indicate coronavirus-19. Ebola Screen: No symptoms or risks identified at this time. Initial Sepsis Screen: Does the patient meet any 2 criteria? HR > 90 bpm. Does the patient have a suspected source of infection? No. Patient's initial sepsis screen is negative. Risk Assessment: Do you want to hurt yourself or someone else? Patient reports no desire to harm self or others. Onset of symptoms was May 17, 2024. 17:45 Method Of Arrival: Ambulatory ap3 17:45 Acuity: PARMINDER 3 ap3 Triage Assessment: 17:47 General: Appears ill, Behavior is calm, cooperative, appropriate for age. General: ap3 Reports chills for fever for feeling ill for fatigue for. Pain: Complains of pain in left arm and generalized body aches. Neuro: Level of Consciousness is awake, alert, obeys commands, Oriented to person, place, time, situation, Appropriate for age Reports dizziness. Cardiovascular: Patient's skin is warm and dry. Respiratory: Reports cough that is Airway is patent Respiratory effort is even, unlabored, Respiratory pattern is regular, symmetrical. GI: Reports nausea. Historical: - Allergies: 17:47 No Known Allergies; ap3 - PMHx: 17:47 GI Bleed; insomnia; ap3 - Immunization history:: Client reports receiving the 2nd dose of the Covid vaccine. - Infectious Disease History:: Denies. - Social history:: Smoking status: Patient denies any tobacco usage or history of. Screenin:48 Abuse screen: Denies threats or abuse. Nutritional screening: No deficits noted. ap3 Tuberculosis screening: No symptoms or risk factors identified. 19:15 [facility] ED Fall Risk Assessment (Adult) History of falling in the last 3 months, rg5 including since admission No falls in past 3 months (0 pts) Confusion or Disorientation No (0 pts) Intoxicated or Sedated No (0 pts) Impaired Gait No (0 pts) Mobility Assist Device Used No (0 pt) Altered Elimination No (0 pt) Score/Fall Risk Level 0 - 2 = Low Risk Oriented to surroundings, Maintained a safe environment, Educated pt \T\ family on fall prevention, incl call for assistance when getting out of bed, Hourly rounding (assess needs \T\ fall precautionary measures) done. Assessment: 18:44 Reassessment: Patient appears in no apparent distress at this time. Patient and/or db family updated on plan of care and expected duration. Pain level reassessed. Patient is alert, oriented x 3, equal unlabored respirations, skin warm/dry/pink. FLU LIKE SYMPTOMS STARTED LAST NIGHT. General: Appears in no apparent distress. uncomfortable, Behavior is calm, cooperative. Neuro: Level of Consciousness is awake, alert, obeys commands, Oriented to person, place, time, situation. 19:15 Reassessment: Patient and/or family updated on plan of care and expected duration. Pain rg5 level reassessed. Patient is alert, oriented x 3, equal unlabored respirations, skin warm/dry/pink. 20:30 Reassessment: Patient and/or family updated on plan of care and expected duration. Pain rg5 level reassessed. Patient is alert, oriented x 3, equal unlabored respirations, skin warm/dry/pink. 21:23 Reassessment: No changes from previously documented assessment. Patient and/or family rg5 updated on plan of care and expected duration. Pain level reassessed. Patient is alert, oriented x 3, equal unlabored respirations, skin warm/dry/pink. 22:34 Reassessment: Patient and/or family updated on plan of care and expected duration. Pain rg5 level reassessed. Patient is alert, oriented x 3, equal unlabored respirations, skin warm/dry/pink. Patient states feeling better. Patient states symptoms have improved. Vital Signs: 17:45 BP 115 / 76; Pulse 99; Resp 18; Temp 100.6(O); Pulse Ox 98% ; Weight 77.11 kg; Height 5 ap3 ft. 6 in. ; Pain 8/10; 19:30 BP 10 / 58; Pulse 95; Resp 18; Temp 99.4(O); Pulse Ox 98% on R/A; rg5 20:30 BP 101 / 66; Pulse 76; Resp 19; Pulse Ox 95% on R/A; rg5 21:26 BP 105 / 70; Pulse 87; Resp 19; Pulse Ox 98% on R/A; rg5 22:15 BP 94 / 64; Pulse 76; Resp 17; Temp 98.8; Pulse Ox 97% on R/A; Pain 2/10; rg5 17:45 Body Mass Index 27.44 (77.11 kg, 167.64 cm) ap3 17:45 Pain Scale: Adult ap3 22:15 Pain Scale: Adult rg5 Olamide Coma Score: 19:15 Eye Response: spontaneous(4). Motor Response: obeys commands(6). Verbal Response: rg5 oriented(5). Total: 15. ED Course: 17:20 Patient arrived in ED. im 17:22 Yoni López PA is PHCP. cp 17:22 Aurelio Armenta MD is Attending Physician. cp 17:47 Triage completed. ap3 17:48 Arm band placed on right wrist. ap3 18:08 Kae Clemons, REBECCA is Primary Nurse. db 18:25 XRAY Chest (1 view) In Process Unspecified. EDMS 18:26 Initial lab(s) drawn, by me, sent to lab. EKG done, reviewed by Yoni OWENS COVID db swab sent to lab. Flu and/or RSV swab sent to lab. Strep swab sent to lab. Inserted saline lock: 20 gauge in right antecubital area, using aseptic technique. Blood collected. Flushed with 10 mL NS. 18:44 Patient has correct armband on for positive identification. Bed in low position. Call db light in reach. Side rails up X 1. Client placed on continuous cardiac and pulse oximetry monitoring. NIBP monitoring applied. box sealing machine catcher on. Pulse ox on. NIBP on. Lights dimmed. Warm blanket given. Pillow given. 19:15 Awaiting lab results. rg5 19:15 No provider procedures requiring assistance completed. rg5 20:49 Jamel Good MD is Attending Physician. cp 21:37 UPPER EXTREMITY VENOUS UNILATE In Process Unspecified. EDMS 22:35 Provided Education on: POST ER CARE. rg5 22:35 IV discontinued, bleeding controlled, No redness/swelling at site. Pressure dressing rg5 applied. Administered Medications: 18:15 Drug: Acetaminophen PO 1000 mg PO once Route: PO; db 19:51 Follow up: Response: No adverse reaction rg5 18:15 Drug: NS 0.9% IV 1000 ml IV at 999 ml/hr Per protocol Route: IV; Rate: 999 ml/hr; Site: db right antecubital; 19:51 Follow up: IV Status: Completed infusion; IV Intake: 1000ml rg5 20:26 Drug: Tussionex Pennkinetic ER PO Suspension 5 ml PO once Route: PO; rg5 21:25 Follow up: Response: No adverse reaction rg5 21:31 CANCELLED (Physician Discretion): [id number] mg 10 mg IVP once cp 21:46 Drug: metoCLOPramide IVP 10 mg IVP once; over 1 to 2 minutes Route: IVP; Site: right rg5 antecubital; 22:36 Follow up: Response: No adverse reaction rg5 21:46 Drug: diphenhydrAMINE IVP 25 mg IVP once Route: IVP; Site: right antecubital; rg5 22:36 Follow up: Response: No adverse reaction rg5 21:47 Drug: Ketorolac IVP 15 mg IVP once Route: IVP; Site: right antecubital; rg5 22:36 Follow up: Response: No adverse reaction; Pain is decreased rg5 Medication: 19:15 VIS not applicable for this client. rg5 Intake: 19:51 IV: 1000ml; Total: 1000ml. rg5 Outcome: 22:15 Discharge ordered by MD. cp 22:35 Discharged to home ambulatory, rg5 22:35 Condition: stable 22:35 Discharge instructions given to patient, Instructed on discharge instructions, follow up and referral plans. Demonstrated understanding of instructions, follow-up care, medications, Prescriptions given X 2, 22:36 Patient left the ED. rg5 Signatures: Dispatcher [employer] EDMS Yoni López PA PA cp Prokisch, Amanda RN RN ap3 Kae Clemons RN RN Aida Mcqueen Rommel, RN RN rg5
--- NOTE | 2024-05-20 22:16 | EDPHYS ---
Physician Documentation [facility] Name: Valerie Gandara Age: 63 yrs Sex: Female : 1960 Arrival Date: 05/20/2024 Time: 17:14 Bed 16 Private MD: ED Physician Jamel Good HPI: 05/20 18:00 This 63 yrs old Female presents to ER via Ambulatory with complaints of Flu Symptoms, cp Arm Pain - left. 18:00 The patient or guardian reports cough, congestion, body aches, fever times 3 days. cp Chest pain with cough. Pain to left forearm started today. Associated signs and symptoms: Pertinent negatives: diarrhea, vomiting, abdominal pain. Severity of symptoms: in the emergency department the symptoms are unchanged despite home interventions. Historical: - Allergies: 17:47 No Known Allergies; ap3 - PMHx: 17:47 GI Bleed; insomnia; ap3 - Immunization history:: Client reports receiving the 2nd dose of the Covid vaccine. - Infectious Disease History:: Denies. - Social history:: Smoking status: Patient denies any tobacco usage or history of. ROS: 18:05 Constitutional: Positive for body aches, chills, Negative for fever, poor PO intake, cp 18:05 Eyes: Negative for injury, pain, redness, and discharge, cp 18:05 ENT: Negative for drainage from ear(s), ear pain, sore throat, difficulty swallowing, difficulty handling secretions, 18:05 Cardiovascular: Positive for chest pain, with cough, Negative for edema, palpitations, 18:05 Respiratory: Positive for cough, "sounds productive", Negative for wheezing, 18:05 Abdomen/GI: Negative for abdominal pain, vomiting, diarrhea, constipation, 18:05 MS/extremity: Positive for pain, of the left forearm, Negative for injury or acute deformity, paresthesias, 18:05 Neuro: Negative for altered mental status, dizziness, headache, syncope, weakness, 18:05 All other systems are negative, Exam: 18:10 Constitutional: The patient appears in no acute distress, alert, awake, cp non-diaphoretic, non-toxic, well developed, well nourished, 18:10 Head/Face: Normocephalic, atraumatic. cp 18:10 Eyes: Periorbital structures: appear normal, Conjunctiva: normal, no exudate, no injection, Sclera: no appreciated abnormality, Lids and lashes: appear normal, bilaterally, 18:10 ENT: External ear(s): are unremarkable, Nose: is normal, Mouth: Lips: moist, Oral mucosa: moist, Posterior pharynx: Airway: no evidence of obstruction, patent, erythema, that is mild, exudate, is not appreciated, 18:10 Neck: ROM/movement: is normal, is supple, without pain, no range of motions limitations, no meningismus, no nuchal rigidity, 18:10 Chest/axilla: Inspection: normal, 18:10 Cardiovascular: Rate: normal, Rhythm: regular, Edema: is not appreciated, JVD: is not appreciated, 18:10 Respiratory: the patient does not display signs of respiratory distress, Respirations: normal, no use of accessory muscles, no retractions, labored breathing, is not present, Breath sounds: decreased breath sounds, are not appreciated, stridor, is not appreciated, wheezing: is not appreciated, 18:10 Abdomen/GI: Inspection: abdomen appears normal, Palpation: abdomen is soft and non-tender, in all quadrants, 18:10 Back: CVA tenderness, is absent, 18:10 Musculoskeletal/extremity: Extremities: grossly normal except: noted in the left forearm: pain, tenderness, There is no evidence of deformity, erythema, swelling, ROM: full active range of motion, in the left arm, Pulses: noted to be 2+ in the left radial artery, the left hand and left arm Sensation intact. 18:10 Skin: no rash present. 18:10 Neuro: Orientation: to person, place \\T\\ time. Mentation: is normal, Motor: moves all fours, no focal deficits, Sensation: is normal, Gait: is steady, 18:45 ECG was reviewed by the Attending Physician. cp Vital Signs: 17:45 BP 115 / 76; Pulse 99; Resp 18; Temp 100.6(O); Pulse Ox 98% ; Weight 77.11 kg; Height 5 ap3 ft. 6 in. ; Pain 8/10; 19:30 BP 10 / 58; Pulse 95; Resp 18; Temp 99.4(O); Pulse Ox 98% on R/A; rg5 20:30 BP 101 / 66; Pulse 76; Resp 19; Pulse Ox 95% on R/A; rg5 21:26 BP 105 / 70; Pulse 87; Resp 19; Pulse Ox 98% on R/A; rg5 22:15 BP 94 / 64; Pulse 76; Resp 17; Temp 98.8; Pulse Ox 97% on R/A; Pain 2/10; rg5 17:45 Body Mass Index 27.44 (77.11 kg, 167.64 cm) ap3 17:45 Pain Scale: Adult ap3 22:15 Pain Scale: Adult rg5 [place] Coma Score: 19:15 Eye Response: spontaneous(4). Motor Response: obeys commands(6). Verbal Response: rg5 oriented(5). Total: 15. MDM: 17:57 Patient medically screened. 05/21 02:30 ED course: Improved . sp4 02:31 Differential diagnosis: contusion, abrasion, tendonitis. Data reviewed: vital signs, sp4 nurses notes. Data reviewed: old medical records, lab test result(s), radiologic studies. 22:28 Differential diagnosis: bronchitis, flu, URI, pneumonia. 05/20 17:56 Order name: Influenza Screen (a \\T\\ B); Complete Time: 20:46 05/20 17:56 Order name: Urinalysis w/ reflexes; Complete Time: 21:26 05/20 21:27 Interpretation: Normal except: [facility] Turbid; UKET 1+; UBLD Trace; UPROT TRACE; UESTR 25; cp BYST Trace. 05/20 17:56 Order name: SARS RAPID; Complete Time: 20:46 05/20 20:46 Interpretation: Reviewed. 05/20 17:56 Order name: Strep; Complete Time: 20:46 05/20 17:56 Order name: Basic Metabolic Panel; Complete Time: 20:46 05/20 20:46 Interpretation: Normal except: GLUC 109; BUN 13; CRE 1.17; GFR 53; CA 8.4. 05/20 17:56 Order name: CBC with Diff; Complete Time: 20:46 05/20 20:47 Interpretation: Normal except: MPV 7.2; EFE% 74.1; LYM% 13.1; LYMA 0.6. 05/20 17:56 Order name: LFT's; Complete Time: 20:46 05/20 20:48 Interpretation: Normal except: IBILI, CALC 0.1; ALB 3.3; A/G 1.0. 05/20 17:56 Order name: Magnesium; Complete Time: 20:46 cp 05/20 17:56 Order name: NT PRO-BNP; Complete Time: 20:46 cp 05/20 20:47 Interpretation: Abnormal: NT PRO-BNP 604. cp 05/20 17:56 Order name: PT-INR; Complete Time: 20:46 cp 05/20 17:56 Order name: Troponin HS; Complete Time: 20:46 cp 05/20 17:56 Order name: Lactate w/ 2H reflex if indic.; Complete Time: 20:46 cp 05/20 19:08 Order name: Throat Culture EDMS 05/20 17:56 Order name: XRAY Chest (1 view); Complete Time: 20:46 05/20 20:47 Interpretation: Report review. 05/20 21:09 Order name: UPPER EXTREMITY VENOUS UNILATE; Complete Time: 22:14 EDAZ 05/20 17:56 Order name: EKG; Complete Time: 17:57 cp 05/20 17:56 Order name: Cardiac monitoring; Complete Time: 18:43 cp 05/20 17:56 Order name: EKG - Nurse/Tech; Complete Time: 18:43 cp 05/20 17:56 Order name: IV Saline Lock; Complete Time: 18:43 cp 05/20 17:56 Order name: Labs collected and sent; Complete Time: 18:43 cp 05/20 17:56 Order name: O2 Per Protocol; Complete Time: 18:43 cp 05/20 17:56 Order name: O2 Sat Monitoring; Complete Time: 18:43 05/20 21:38 Order name: PO challenge; Complete Time: 22:06 cp EC/31 18:45 Rate is 84 beats/min. Rhythm is regular. ND interval is normal. QRS interval is normal. cp QT interval is normal. T waves are Inverted in lead I. Interpreted by me. Reviewed by me. Administered Medications: 18:15 Drug: Acetaminophen PO 1000 mg PO once Route: PO; db 19:51 Follow up: Response: No adverse reaction rg5 18:15 Drug: NS 0.9% IV 1000 ml IV at 999 ml/hr Per protocol Route: IV; Rate: 999 ml/hr; Site: db right antecubital; 19:51 Follow up: IV Status: Completed infusion; IV Intake: 1000ml rg5 20:26 Drug: Tussionex Pennkinetic ER PO Suspension 5 ml PO once Route: PO; rg5 21:25 Follow up: Response: No adverse reaction rg5 21:31 CANCELLED (Physician Discretion): [id number] mg 10 mg IVP once cp 21:46 Drug: metoCLOPramide IVP 10 mg IVP once; over 1 to 2 minutes Route: IVP; Site: right rg5 antecubital; 22:36 Follow up: Response: No adverse reaction rg5 21:46 Drug: diphenhydrAMINE IVP 25 mg IVP once Route: IVP; Site: right antecubital; rg5 22:36 Follow up: Response: No adverse reaction rg5 21:47 Drug: Ketorolac IVP 15 mg IVP once Route: IVP; Site: right antecubital; rg5 22:36 Follow up: Response: No adverse reaction; Pain is decreased rg5 Disposition: 05/21 02:30 Co-signature as Attending Physician, Jamel Good MD I agree with the assessment sp4 and plan of care. I reviewed the patient's care provided by Advanced Practice Provider \\T\\ agree w/ the diagnosis \\T\\ care plan. I personally saw the pt \\T\\ performed a substantive portion of the visit, incldng all aspects of the (History/Exam/Medical Decision Making). Disposition Summary: 05/20/24 22:15 Discharge Ordered Notes: Location: Home cp Problem: new cp Symptoms: have improved cp Condition: Stable cp Diagnosis - SARS-associated coronavirus as the cause of diseases classified elsewhere cp - Pain in left forearm cp - Chest pain, unspecified cp Followup: cp - With: Private Physician - When: 2 - 3 days - Reason: Recheck today's complaints Discharge Instructions: - Discharge Summary Sheet cp - Nonspecific Chest Pain, Adult cp - Musculoskeletal Pain cp - Aspirin and Your Heart cp - COVID-19 cp - How to Protect Yourself and Others - [facility] (11/14/2021) cp - 10 Things You Can Do to Manage Your COVID-19 Symptoms at Home - [facility] (04/04/2021) cp - COVID-19: Quarantine and Isolation - [facility] (12/17/2021) cp - COVID-19: What to Do If You Are Sick - [facility] (12/09/2021) cp Forms: - Medication Reconciliation Form cp - Antibiotic Education cp - Prescription Opioid Use cp - Patient Portal Instructions cp - Leadership Thank You Letter cp Prescriptions: - Bromfed DM 2-30-10 mg/5 mL Oral syrup - administer 10 milliliter ORAL route every 6 hours as needed for cold symptoms; cp 240 milliliter; Refills: 0, Product Selection Permitted - Paxlovid 300 mg (150 mg x 2)-100 mg Oral Tablet, Dose Pack - take 1 dose pack ORAL route as directed on dose pack take TWO 150 mg tablets of cp nirmatrelvir with ONE 100 mg tablet of ritonavir twice daily for 5 days; 30 tablet; Refills: 0, Product Selection Permitted Signatures: Dispatcher [employer] EDMS Yoni López PA PA cp Prokisch, Amanda RN RN ap3 Kae Clemons RN RN db Jamel Good MD MD sp4 Kolby Aj RN RN rg5 Corrections: (The following items were deleted from the chart) 05/20 17:57 17:57 Influenza Screen (A \\T\\ B)+BA.LAB.BRZ ordered. EDMS EDMS 17:57 17:57 Urinalysis+U.LAB.BRZ ordered. EDMS EDMS 17:57 17:57 SARS-COV-2 Antigen Rapid+I.LAB.BRZ ordered. EDMS EDMS 17:57 17:57 Group A Streptococcus Rapid Sc+BA.LAB.BRZ ordered. EDMS EDMS 17:57 17:57 BASIC METABOLIC PANEL+C.LAB.BRZ ordered. EDMS EDMS 17:57 17:57 CBC+H.LAB.BRZ ordered. EDMS EDMS 17:57 17:57 HEPATIC FUNCTION+C.LAB.BRZ ordered. EDMS EDMS 17:57 17:57 MAGNESIUM+C.LAB.BRZ ordered. EDMS EDMS 17:57 17:57 PROBNP+C.LAB.BRZ ordered. EDMS EDMS 17:57 17:57 PROTIME (+INR)+COAG.LAB.BRZ ordered. EDMS EDMS 17:57 17:57 Troponin High Sensitivity+C.LAB.BRZ ordered. EDMS EDMS 17:57 17:57 LACTATE+C.LAB.BRZ ordered. EDMS EDMS 21: 20:49 Extremity Venous Uni Ltd+US.RAD.BRZ ordered. EDMS EDMS : 21:27 Ketorolac IVP 10 mg 10 mg IVP once ordered. cp cp
[2024-05-20 22:51] VITALS: BP 94/64; TEMP 98.8; O2SAT 97
--- NOTE | 2024-05-23 12:45 | EKG ---
Test Date: 2024-05-20 Test Time: 18:40:25 Carpenter Assistant: VICTOR M MEASUREMENT RESULTS: Intervals: Rate: 84 FL: 162 QRSD: 76 QT: 386 QTc: 456 [place]: P: 16 FL: 162 QRS: 79 T: 0 INTERPRETIVE STATEMENTS: Normal sinus rhythm Low voltage QRS Nonspecific ST and T wave abnormality Abnormal ECG Compared to ECG 03/18/2022 14:45:32 Low QRS voltage now present ST (T wave) deviation now present Right-axis deviation no longer present T-wave abnormality no longer present Possible ischemia no longer present Electronically Signed On 05-23-24 12:40:59 CDT by Beau Paredes
== END 2024-05-20 22:36 | disposition home or self-care (01) ==
LOC: ER 17:14
DX: U07.1 COVID-19 (principal); M79.632 Pain in left forearm
CPT/HCPCS: 36415; 71045; 80048; 80076; 81001; 83605; 83735; 83880; 84484; 85025; 85610; 87070; 87081; 87804; 87811; 93005; 93971; 96361; 96374; 96375; 99285; J1200; J2765; J7030

== ENCOUNTER 2024-05-22 08:18 | Inpatient (IN) | payer SELFPAY ==
[2024-05-22] MEDS ORDERED: ONDANSETRON 4 MG/2 ML VIAL ONE ×2 (08:40→15:16)
[2024-05-22] MEDS ORDERED: LOPERAMIDE HCL 2 MG CAPSULE ONE (08:40)
[2024-05-22] MEDS ORDERED: NA CHLORIDE 0.9% 1,000 ML ONE ×2 (08:41→12:15)
[2024-05-22] MEDS ORDERED: DICYCLOMINE HCL 20 MG/2 ML AMP IM ONE (08:41)
[2024-05-22] MEDS ORDERED: MORPHINE 4 MG/ML SYR ONE (08:41)
[2024-05-22 09:19] LABS: Albumin 3.1 g/dL (3.4-5.0); Albumin/Globulin Ratio 0.9 (1.1-1.8); Anion Gap 3.9 mEq/L (5.0-15.0); Bilirubin Total 0.4 mg/dL (0.2-1.0); Globulin 3.6 g/dL (2.3-3.5); Potassium 3.9 mEq/L (3.5-5.1); Protein, Total 6.7 g/dL (6.4-8.2)
[2024-05-22 09:20] LABS: Absolute Lymphocytes (CBC) 1.3 K/uL (0.7-4.9); Absolute Monocytes 0.4 K/uL (0.1-1.3); Absolute Neutrophil 6.3 K/uL (1.8-8.0); Basophils % 0.3 % (0-1.3); Eosinophils % 0.1 % (0-4.4); Hematocrit 39.3 % (36.0-45.0); Hemoglobin 12.7 g/dL (12.0-15.0); Lymphocytes % 15.9 % (15.3-44.8); MCH 27.6 pg (27.0-35.0); MCHC 32.2 g/dL (32.0-36.0); MCV 85.7 fL (80-100); MPV 7.7 fL (7.6-11.3); Monocytes % 5.4 % (3.3-12.3); Neutrophils % 78.3 % (41.7-73.7); Platelets 200 thou/uL (152-406); RBC Red Blood Cell Count 4.59 M/uL (3.86-4.86)
[2024-05-22] MEDS ORDERED: FENTANYL CITR 100 MCG/2 ML ONE ×2 (09:39→13:50)
--- NOTE | 2024-05-22 09:57 | RAD REPORT ---
EXAM DESCRIPTION: CTAbdomen Pelvis W Contrast - 05/22/2024 9:30 am CLINICAL HISTORY: ABD PAIN COMPARISON: Abdomen Pelvis W Contrast dated 01/21/2020; Abdomen Pelvis W Contrast dated 10/27/2017 TECHNIQUE: CT of the abdomen and pelvis was performed. All CT scans are performed using dose optimization technique as appropriate and may include automated exposure control or mA/KV adjustment according to patient size. FINDINGS: Lower chest: Scarring left lung base. Thickened distal esophagus which may reflect esophag itis. Liver: Several unchanged low-density liver lesions which are probably benign and similar to 0 . Biliary: No biliary ductal dilatation. Stomach: Gastric banding. Duodenum: Suspected perforation at the proximal duodenum. Pancreas: No significant abnormality. Spleen: No significant abnormality. Adrenal: No suspicious lesions. Kidney/ureter: No hydronephrosis. No renal calculi. Retroperitoneum: No retroperitoneal adenopathy. Vascular: No aneurysm. Atherosclerosis . Bowel: No significant focal abnormality. Normal appendix . Peritoneum: Free air is present . Trace perihepatic free fluid. No abscess. Bladder: Grossly unremarkable. Reproductive: No adnexal masses. Bones: No acute fracture. Other: n/a IMPRESSION: Pneumoperitoneum consistent with perforation of a hollow viscus. Suspected perforation a t the proximal duodenum, likely peptic ulcer disease. No abscess identified. Recommend surgical consu ltation. Conveyed to Dr. Marquez by Dr. Mayers at [id number] on 05/22/24
[2024-05-22] MEDS ORDERED: HYDROMORPHONE HCL 1 MG/ML INJ ONE (10:08)
[2024-05-22] MEDS ORDERED: NA CHLORIDE 0.9% 100 ML ONE (10:08)
[2024-05-22] MEDS ORDERED: PIPERACIL/TAZO 3.375 GM VIAL IV ONE (10:08)
--- NOTE | 2024-05-22 10:26 | EDPHYS ---
Physician Documentation [facility] Name: Valerie Gandara Age: 63 yrs Sex: Female : 1960 Arrival Date: 05/22/2024 Time: 08:18 Bed 4 Private MD: ED Physician Barry Marquez HPI: 05/22 08:36 This 63 yrs old Female presents to ER via Ambulatory with complaints of Abdominal Pain. sb4 08:36 The patient presents with abdominal pain that is diffuse. Onset: The symptoms/episode sb4 began/occurred 2 day(s) ago. The symptoms do not radiate. Associated signs and symptoms: Pertinent positives: nausea, vomiting, and diarrhea. The symptoms are described as crampy. Modifying factors: The symptoms are alleviated by nothing, the symptoms are aggravated by coughing, breathing deeply. Severity of pain: in the emergency department the pain is a 10 / 10. The patient has not experienced similar symptoms in the past. The patient has been recently seen at the [facility] Emergency Department, this week, for unrelated complaints. Historical: - Allergies: 08:33 Hydrocodone-Acetaminophen; bp - Home Meds: 08:33 Adderall XR 15 mg Oral cp24 1 cap once daily [Active]; lorazepam 1 mg Oral tab 2 times bp per day [Active]; - PMHx: 08:33 insomnia; GI Bleed; bp - Immunization history:: Adult Immunizations up to date. - Infectious Disease History:: Denies. - Social history:: Smoking status: Patient denies any tobacco usage or history of. ROS: 08:36 Constitutional: Negative for fever, chills, and weight loss, sb4 08:36 Abdomen/GI: Positive for abdominal pain, nausea, vomiting, and diarrhea, 08:36 All other systems are negative, Exam: 08:36 Head/Face: Normocephalic, atraumatic. Eyes: Extra-ocular motions intact. Periorbital sb4 areas with no swelling, redness, or edema. ENT: Mucous membranes moist. Cardiovascular: Regular rate and rhythm with a normal S1 and S2. Respiratory: Lungs have equal breath sounds bilaterally, clear to auscultation and percussion. No rales, rhonchi or wheezes noted. No increased work of breathing, no retractions or nasal flaring. Abdomen/GI: Soft, non-tender, no distension. Skin: Warm, dry with normal turgor. Normal color with no rashes, no lesions, and no evidence of cellulitis. 08:36 Constitutional: The patient appears alert, awake, in obvious pain, uncomfortable, Vital Signs: 08:31 BP 107 / 70; Pulse 91; Resp 16; Temp 98; Pulse Ox 97% ; Weight 77.11 kg; Height 5 ft. 7 bp in. ; 09:45 BP 149 / 82; Pulse 73; Resp 17 S; Pulse Ox 100% on R/A; kc6 10:05 BP 136 / 84; Pulse 79; Resp 17 S; Pulse Ox 100% on R/A; kc6 08:31 Body Mass Index 26.63 (77.11 kg, 170.18 cm) bp MDM: 08:26 Patient medically screened. sb4 10:05 ED course: CT shows pneumoperitoneum, perforation likely at the proximal duodenum. sb4 patient reports history of ulcers, last bled a few years ago but has been stable since. does not take any PPIs, occasionally takes NSAIDs, denies any alcohol or drug use. 10:15 Data reviewed: vital signs, nurses notes, lab test result(s), radiologic studies, I sb4 have discussed the patient's presentation/case with the attending Emergency Department Physician; and as a result, I will admit patient. Consideration of Admission/Observation Patient was admitted/placed on observation. Management of patient was discussed with the following: Radar Signal Processing Engineer: Dr. Zaragoza, will take to OR. Counseling: I had a detailed discussion with the patient and/or guardian regarding the historical points, exam findings, and any diagnostic results supporting the discharge/admit diagnosis, lab results, radiology results, the need for further work-up and treatment in the hospital. 05/22 08:36 Order name: CBC with Diff; Complete Time: 09:23 sb4 05/22 08:36 Order name: CMP; Complete Time: 09:21 sb4 05/22 08:36 Order name: Lipase; Complete Time: 09:21 4 05/22 08:36 Order name: Urinalysis w/ reflexes; Complete Time: 12:04 4 05/22 11:08 Order name: Basic Metabolic Panel EDIN 05/22 11:08 Order name: Basic Metabolic Panel EDIN 05/22 11:08 Order name: CBC with Automated Diff EDMS 05/22 11:09 Order name: CBC with Automated Diff EDMS 05/22 11:09 Order name: Hematocrit EDMS 05/22 11:09 Order name: Hematocrit EDMS 05/22 11:09 Order name: Hematocrit EDMS 05/22 11:09 Order name: Hemoglobin EDMS 05/22 11:09 Order name: Hemoglobin EDMS 05/22 11:09 Order name: Hemoglobin EDMS 05/22 11:09 Order name: Protime (+INR) EDMS 05/22 11:09 Order name: Protime (+INR) EDMS 05/22 11:09 Order name: PTT, Activated Partial Thromb EDMS 05/22 11:09 Order name: PTT, Activated Partial Thromb EDMS 05/22 08:36 Order name: CT Abd/Pelvis - IV Contrast Only; Complete Time: 09:57 sb4 05/22 11:08 Order name: CONS Physician Consult EDMS 05/22 11:08 Order name: EKG Electrocardiogram EDMS 05/22 11:08 Order name: EKG Electrocardiogram EDMS 05/22 11:08 Order name: EKG Electrocardiogram EDMS 05/22 11:08 Order name: EKG Electrocardiogram EDMS 05/22 11:08 Order name: EKG Electrocardiogram EDMS 05/22 11:08 Order name: EKG Electrocardiogram EDMS 05/22 11:08 Order name: EKG Electrocardiogram EDMS 05/22 11:08 Order name: EKG Electrocardiogram EDMS 05/22 11:08 Order name: EKG Electrocardiogram EDMS 05/22 11:08 Order name: EKG Electrocardiogram EDMS 05/22 11:08 Order name: EKG Electrocardiogram EDMS 05/22 08:36 Order name: IV Saline Lock; Complete Time: 08:55 sb4 05/22 08:36 Order name: Labs collected and sent; Complete Time: 08:55 sb4 05/22 09:59 Order name: NPO; Complete Time: 10:04 sb4 Administered Medications: 08:56 Drug: NS 0.9% IV 1000 ml IV at 1 bolus Per protocol; 1000 mL bolus Route: IV; Rate: 1 kc6 bolus; Site: right antecubital; 10:04 Follow up: Response: No adverse reaction; IV Status: Completed infusion; IV Intake: kc6 1000ml 08:56 Drug: Ondansetron IVP 4 mg IVP once; over 2 minutes Route: IVP; Site: right antecubital;kc6 09:38 Follow up: Response: No adverse reaction kc6 08:56 Drug: morphine IVP or IV 4 mg IVP once over 4 mins Route: IVP; Infused Over: 4 mins; kc6 Site: right antecubital; 09:38 Follow up: Response: No adverse reaction; Pain is unchanged, physician notified; RASS: kc6 Alert and Calm (0) 08:56 Drug: Dicyclomine IM 20 mg IM once Route: IM; Site: right deltoid; kc6 09:37 Follow up: Response: No adverse reaction; Pain is unchanged, physician notified kc6 08:56 Drug: Loperamide PO 4 mg PO once Route: PO; kc6 09:38 Follow up: Response: No adverse reaction kc6 09:44 Drug: fentaNYL (PF) IVP 50 mcg IVP once Route: IVP; Site: right antecubital; kc6 10:04 Follow up: Response: No adverse reaction; Pain is unchanged, physician notified; RASS: kc6 Alert and Calm (0) 10:17 Drug: HYDROmorphone IVP 1 mg IVP once Route: IVP; Site: right antecubital; kc6 10:28 Follow up: Response: No adverse reaction; Pain is decreased; RASS: Alert and Calm (0) kc6 10:17 Drug: Piperacillin-Tazobactam IVPB 3.375 grams IVPB once over 60 mins; (mix in NS 100 kc6 mL) Route: IVPB; Infused Over: 60 mins; Site: right antecubital; 10:36 Drug: Pantoprazole IVP 80 mg IVP once Route: IVP; Site: right antecubital; kc6 Disposition Summary: 05/22/24 10:26 Hospitalization Ordered Notes: Hospitalization Status: Inpatient Admission sb4 Location: Operating Room sb4 Condition: Fair sb4 Problem: new sb4 Symptoms: are unchanged sb4 Bed/Room Type: Standard sb4 Room Assignment: sb4 Provider: Pati Orosco(05/22/24 10:28) sb4 Diagnosis - Pneumoperitoneum secondary to perforated duodenal ulcer sb4 Forms: - Medication Reconciliation Form sb4 - SBAR form sb4 - Leadership Thank You Letter sb4 Signatures: Dispatcher [employer] Fidelia Montesinosian, RN RN Marilou Triplett RN RN kc6 April Bearden PA-C PAThony sb4 Corrections: (The following items were deleted from the chart) 08:33 08:33 PMHx: "bleeding ulcers"; bp bp 08:36 08:36 CBC+H.LAB.BRZ ordered. EDMS EDMS 08:36 08:36 COMPREHENSIVE METABOLIC PANEL+C.LAB.BRZ ordered. EDMS EDMS 08:36 08:36 LIPASE+C.LAB.BRZ ordered. EDMS EDMS 08:36 08:36 Urinalysis+U.LAB.BRZ ordered. EDMS EDMS 08:37 08:37 Abdomen Pelvis W Con+CT.RAD.BRZ ordered. EDMS EDMS 10:28 10:26 Adin Zaragoza sb4 sb4
--- NOTE | 2024-05-22 10:26 | ER ---
Nurse's Notes [facility] Name: Valerie Gandara Age: 63 yrs Sex: Female : 1960 Arrival Date: 05/22/2024 Time: 08:18 Bed 4 Private MD: Diagnosis: Pneumoperitoneum secondary to perforated duodenal ulcer Presentation: 05/22 08:31 Chief complaint: Patient states: DIFFUSE ABDOMINAL PAIN SINCE TAKING PAXLOVID, DX WITH bp COVID WEDNESDAY. Coronavirus screen: At this time, the client does not indicate any symptoms associated with coronavirus-19. Ebola Screen: No symptoms or risks identified at this time. Initial Sepsis Screen: Does the patient meet any 2 criteria? No. Patient's initial sepsis screen is negative. Does the patient have a suspected source of infection? No. Patient's initial sepsis screen is negative. Risk Assessment: Do you want to hurt yourself or someone else? Patient reports no desire to harm self or others. Onset of symptoms is unknown. 08:31 Method Of Arrival: Ambulatory bp 08:31 Acuity: PARMINDER 3 bp Triage Assessment: 08:33 General: Appears uncomfortable, Behavior is calm, cooperative, appropriate for age. bp Pain: Complains of pain in abdomen. EENT: No deficits noted. Neuro: No deficits noted. Cardiovascular: No deficits noted. Respiratory: No deficits noted. GI: Reports lower abdominal pain, upper abdominal pain, cramping, diarrhea, nausea. : No signs and/or symptoms were reported regarding the genitourinary system. Derm: No deficits noted. Musculoskeletal: No deficits noted. Historical: - Allergies: 08:33 Hydrocodone-Acetaminophen; bp - Home Meds: 08:33 Adderall XR 15 mg Oral cp24 1 cap once daily [Active]; lorazepam 1 mg Oral tab 2 times bp per day [Active]; - PMHx: 08:33 insomnia; GI Bleed; bp - Immunization history:: Adult Immunizations up to date. - Infectious Disease History:: Denies. - Social history:: Smoking status: Patient denies any tobacco usage or history of. Screenin:37 [facility] ED Fall Risk Assessment (Adult) History of falling in the last 3 months, kc6 including since admission No falls in past 3 months (0 pts) Confusion or Disorientation No (0 pts) Intoxicated or Sedated No (0 pts) Impaired Gait No (0 pts) Mobility Assist Device Used No (0 pt) Altered Elimination No (0 pt) Score/Fall Risk Level 0 - 2 = Low Risk Oriented to surroundings. Abuse screen: Denies threats or abuse. Denies injuries from another. Nutritional screening: No deficits noted. Tuberculosis screening: No symptoms or risk factors identified. Assessment: 08:36 General: Appears in no apparent distress. uncomfortable, well groomed, well developed, kc6 Behavior is calm, cooperative, appropriate for age. Pain: Complains of pain in abdomen diffusely. Neuro: Level of Consciousness is awake, alert, obeys commands, Oriented to person, place, time, situation, Appropriate for age. Cardiovascular: Capillary refill < 3 seconds. Respiratory: Airway is patent Trachea midline Respiratory effort is even, unlabored, Respiratory pattern is regular, symmetrical. GI: Abdomen is flat, non-distended, Bowel sounds present X 4 quads. Abd is soft X 4 quads Abdomen is tender to palpation X 4 quads. Guarding noted X 4 quads. Reports lower abdominal pain, upper abdominal pain, cramping, diarrhea, Patient currently denies nausea, vomiting. : No signs and/or symptoms were reported regarding the genitourinary system. EENT: No signs and/or symptoms were reported regarding the EENT system. Derm: No signs and/or symptoms reported regarding the dermatologic system. Skin is intact, is healthy with good turgor, Skin is pink, warm \\T\\ dry. Musculoskeletal: No signs and/or symptoms reported regarding the musculoskeletal system. Circulation, motion, and sensation intact. Capillary refill < 3 seconds, Range of motion: intact in all extremities. 09:03 Reassessment: pt uses call light and tells this nurse, "the pain is back and I'm having kc6 a hard time breathing. What's wrong with me?" pt appears to be sitting up in the bed guarding the RLQ. GRACIELA Perez made aware. 09:44 Reassessment: Patient appears in no apparent distress at this time. No changes from kc6 previously documented assessment. Patient and/or family updated on plan of care and expected duration. Pain level reassessed. Patient is alert, oriented x 3, equal unlabored respirations, skin warm/dry/pink. Patient states symptoms have not improved. 10:44 Reassessment: Patient appears in no apparent distress at this time. No changes from kc6 previously documented assessment. Patient and/or family updated on plan of care and expected duration. Pain level reassessed. Patient is alert, oriented x 3, equal unlabored respirations, skin warm/dry/pink. 11:44 Reassessment: Patient appears in no apparent distress at this time. No changes from kc6 previously documented assessment. Patient and/or family updated on plan of care and expected duration. Pain level reassessed. Patient is alert, oriented x 3, equal unlabored respirations, skin warm/dry/pink. Vital Signs: 08:31 BP 107 / 70; Pulse 91; Resp 16; Temp 98; Pulse Ox 97% ; Weight 77.11 kg; Height 5 ft. 7 bp in. ; 09:45 BP 149 / 82; Pulse 73; Resp 17 S; Pulse Ox 100% on R/A; kc6 10:05 BP 136 / 84; Pulse 79; Resp 17 S; Pulse Ox 100% on R/A; kc6 08:31 Body Mass Index 26.63 (77.11 kg, 170.18 cm) bp ED Course: 08:23 Patient arrived in ED. ra3 08:24 April Bearden PA-C is PHCP. sb4 08:24 Barry Marquez MD is Attending Physician. sb4 08:30 Marilou Agustin, RN is Primary Nurse. kc6 08:33 Triage completed. bp 08:33 Arm band placed on. bp 08:37 Patient has correct armband on for positive identification. Bed in low position. Call kc6 light in reach. Side rails up X 1. Pulse ox on. NIBP on. Door closed. Noise minimized. Lights dimmed. Warm blanket given. Pillow given. 08:56 Inserted saline lock: 22 gauge in right antecubital area, using aseptic technique. kc6 Blood collected. Flushed with 10 mL NS. Patient maintains SpO2 saturation greater than 95% on room air. 09:32 CT Abd/Pelvis - IV Contrast Only In Process Unspecified. EDMS 09:35 Patient requests pain medication. kc6 10:04 Patient requests pain medication. kc6 10:05 Diet: Patient is NPO. kc6 10:25 Adin Zaragoza MD is Hospitalizing Provider. sb4 10:28 Pati Orosco MD is Hospitalizing Provider. sb4 12:30 No provider procedures requiring assistance completed. Patient admitted, IV remains in kc6 place. Administered Medications: 08:56 Drug: NS 0.9% IV 1000 ml IV at 1 bolus Per protocol; 1000 mL bolus Route: IV; Rate: 1 kc6 bolus; Site: right antecubital; 10:04 Follow up: Response: No adverse reaction; IV Status: Completed infusion; IV Intake: kc6 1000ml 08:56 Drug: Ondansetron IVP 4 mg IVP once; over 2 minutes Route: IVP; Site: right antecubital;kc6 09:38 Follow up: Response: No adverse reaction kc6 08:56 Drug: morphine IVP or IV 4 mg IVP once over 4 mins Route: IVP; Infused Over: 4 mins; kc6 Site: right antecubital; 09:38 Follow up: Response: No adverse reaction; Pain is unchanged, physician notified; RASS: kc6 Alert and Calm (0) 08:56 Drug: Dicyclomine IM 20 mg IM once Route: IM; Site: right deltoid; kc6 09:37 Follow up: Response: No adverse reaction; Pain is unchanged, physician notified kc6 08:56 Drug: Loperamide PO 4 mg PO once Route: PO; kc6 09:38 Follow up: Response: No adverse reaction kc6 09:44 Drug: fentaNYL (PF) IVP 50 mcg IVP once Route: IVP; Site: right antecubital; kc6 10:04 Follow up: Response: No adverse reaction; Pain is unchanged, physician notified; RASS: kc6 Alert and Calm (0) 10:17 Drug: HYDROmorphone IVP 1 mg IVP once Route: IVP; Site: right antecubital; kc6 10:28 Follow up: Response: No adverse reaction; Pain is decreased; RASS: Alert and Calm (0) kc6 10:17 Drug: Piperacillin-Tazobactam IVPB 3.375 grams IVPB once over 60 mins; (mix in NS 100 kc6 mL) Route: IVPB; Infused Over: 60 mins; Site: right antecubital; 10:36 Drug: Pantoprazole IVP 80 mg IVP once Route: IVP; Site: right antecubital; kc6 Medication: 12:30 VIS not applicable for this client. kc6 Intake: 10:04 IV: 1000ml; Total: 1000ml. kc6 Outcome: 10:26 Decision to Hospitalize by Provider. sb4 12:30 Admitted to OR accompanied by nurse, via stretcher, with chart, Report called to Edy Lockhart RN 12:30 Condition: good 12:30 Instructed on the need for admit, kc6 13:01 Patient left the ED. kc6 Signatures: Dispatcher [employer] EDChidi Christie RN RN bp Campbell, Kaitlyn, RN RN April Shay, PA-C PA-C sb4 Jordyn Shook ra3 Corrections: (The following items were deleted from the chart) 08:33 08:33 PMHx: "bleeding ulcers"; bp bp
[2024-05-22] MEDS ORDERED: PANTOPRAZOLE 40 MG INJ ONE (10:29)
[2024-05-22] MEDS ORDERED: ACETAMINOPHEN 500 MG TAB PO PRN (11:00)
[2024-05-22] MEDS ORDERED: ONDANSETRON 4 MG/2 ML VIAL IV PRN ×2 (11:00)
[2024-05-22] MEDS: NA CHLORIDE 0.9% 1,000 ML IV SCH (11:00)
--- NOTE | 2024-05-22 11:02 | P.CNS ---
Date of Consult: 05/22/24 Reason for consult: Abdominal pain History of present illness: Patient is a 63-year-old female who has not been feeling well for the last 3 to 4 days however yesterday she started having acute onset of upper abdominal pain associated with nausea and vomiting. Patient also had diarrhea. Patient denies any constipation or blood per rectum. Patient has a history of bleeding ulcer a long time ago. Patient also had a gastric band procedure a while back. Patient also has a cough and is COVID-positive. Patient denies any sore throat, runny nose, headaches, dizziness, chest pain, fever or chills. Review of systems: Otherwise unremarkable Past medical history: Anxiety, peptic ulcer disease Past surgical history: Gastric band surgery Allergies: Hydrocodone Social history: Patient does not smoke and drinks occasionally Family history: [place] Vital signs: Stable, afebrile Physical exam: Awake, alert and oriented x 3 Head and neck exam: No masses Chest: Clear Heart: S1-S2 Abdomen: Distended, soft, hypoactive bowel sound with tenderness and rebound in the upper abdomen Extremity: Neurovascular intact Neuro: Nonfocal Diagnostic data: Laboratory data reviewedessentially unremarkable. CT of the abdomen pelvis reviewed with the radiologist. Shows a perforated duodenal ulcer with pneumoperitoneum and some fluid outside. Assessment: Peritonitis with perforated duodenal ulcer Plan/recommendation: Admit, n.p.o., IV fluids, IV antibiotics and to the OR for exploratory laparotomy and repair of perforated duodenal ulcer. Patient understands risk, benefits and alternatives and agrees to procedure. CC:
--- NOTE | 2024-05-22 11:07 | P.HP ---
Certification for Inpatient Patient admitted to: Inpatient With expected LOS: >2 Midnights Practitioner: I am a practitioner with admitting privileges, knowledge of patient current condition, hospital course, and medical plan of care. Services: Services provided to patient in accordance with Admission requirements found in Title 42 Section 412.3 of the Code of Federal Regulations Patient History Date of Service: 05/22/24 Reason for admission: Perforated duodenal ulcer History of Present Illness: The patient is a 63-year-old female presents with severe abdominal pain. Kirti swain was in the ER a couple of days ago with upper respiratory symptoms and found to have COVID and started on Paxlovid. Patient's having severe abdominal pain and was seen in the ER by General surgery after CT imaging revealed pneumoperitoneum. Patient with a history of lap band surgery and patient has had a questionable GI bleed in the past. Patient's labs are stable and patient is hemodynamically is stable at this time. Patient with acute abdomen and will be taken to the OR for emergent surgical intervention. Patient will be admitted to the ICU for continued treatment. Continue monitor hemodynamics closely. Allergies No Known Allergies Allergy (Verified 05/22/24 12:53) Home Medications: Oseltamivir [Tamiflu*] 75 mg PO BID cap 10/29/17 Dextroamphetamine/Amphetamine [Adderall 15 mg Tablet] 15 mg PO DAILY 03/18/22 LORazepam [Ativan*] 1 mg PO BID PRN 03/18/22 Oseltamivir Phosphate 75 mg PO BID 4 Days #8 capsule 03/21/22 - Past Medical/Surgical History Diabetic: No -: History of lap band procedure for weight loss -: History of lap band procedure Psychosocial/ Personal History: The patient is . 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 moist/pink, EOMI, Sclerae nonicteric Neck: Supple, 2+ carotid pulse no bruit, No LAD, Without JVD or thyroid abnormality Respiratory: Clear to auscultation bilaterally, Normal air movement Cardiovascular: Regular rate/rhythm, Normal S1 S2 Gastrointestinal: Hypoactive, No guarding, Distended, Tenderness, Rebound Musculoskeletal: No clubbing, No swelling, No tenderness Integumentary: No rashes Neurological: Normal speech, Normal tone, Sensation intact, Cranial nerves 3-12 intact, Normal affect, Abnormal gait, Abnormal strength Lymphatics: No axilla or inguinal lymphadenopathy - Studies Laboratory Data (last 24 hrs) 05/22/24 05/22/24 08:54 08:54 WBC 8.10 Hgb 12.7 Hct 39.3 Plt Count 200 Sodium 134 L Potassium 3.9 BUN 9 Creatinine 1.00 Glucose 136 H Total Bilirubin 0.4 AST 16 ALT 17 Alkaline Phosphatase 61 Lipase 23 Assessment & Plan - Problems (Diagnosis) (1) Perforated duodenal ulcer Current Visit: Yes Status: Acute - Plan -management per surgery -PT evaluation -DVT prophylaxis -IV hydration and IV antibiotics -Continue with NPO -pain control -continue NG tube to suction; if any issues with NG to will notify General surgery. Not to replace nasogastric tube without surgical discussion Discharge Plan: Home Plan to discharge in: Greater than 2 days - Advance Directives Does patient have a Living Will: No Does patient have a Durable POA for Healthcare: No - Code Status/Comfort Care Code Status Assessed: Yes Code Status: Full Code Critical Care: Yes Time Spent Managing PTS Care (In Minutes): 50
[2024-05-22] MEDS: PANTOPRAZOLE INJ 80 MG in NA CHLORIDE 0.9% 250 ML IV SCH (11:30)
[2024-05-22] MEDS: OCTREOTIDE 500 MCG in NA CHLORIDE 0.9% 500 ML IV SCH (11:30)
[2024-05-22 12:02] LABS: Sqamous Epithelial <5 /HPF (None Seen); Urine Bacteria None Seen /HPF (<20); Urine Bilirubin NEGATIVE (Negative); Urine Blood 1+ (Negative); Urine Clarity Clear (Clear); Urine Color Colorless (Yellow); Urine Culture Reflex Order NOT NEEDED; Urine Glucose NEGATIVE (Negative); Urine Ketones TRACE (Negative); Urine Microscopic Reflex YN ORDER UMIC; Urine Mucus Slight /HPF (None Seen); Urine Nitrite NEGATIVE (Negative); Urine Protein NEGATIVE (Negative); Urine RBC <5 /HPF (None Seen); Urine Urobilinogen Normal (Normal); Urine WBC <5 /HPF (<5); Urine pH 5.5 (5.0-7.0)
[2024-05-22 12:03] LABS: Specific Gravity > 1.030 (1.005-1.030)
[2024-05-22] MEDS ORDERED: MORPHINE 2 MG/ML SYR ONE (12:15)
[2024-05-22] MEDS: MORPHINE 2 MG/ML SYR IV PRN (12:25)
[2024-05-22] MEDS: Ringers Lactate 1,000 ML IV ONE (12:52)
[2024-05-22] MEDS: CEFOXITIN SODIUM 1 GM/VIAL ONE (13:07)
[2024-05-22] MEDS ORDERED: propofoL 200 MG/20 ML VIAL IV ONE (13:50)
[2024-05-22] MEDS ORDERED: LIDOCAINE 2% MPF 5 ML VIAL ONE (13:51)
[2024-05-22] MEDS ORDERED: ROCURONIUM 50 MG/5 ML VIAL IV ONE (13:51)
[2024-05-22] MEDS ORDERED: MIDAZOLAM HCL 2 MG/2 ML INJ ONE (13:51)
[2024-05-22] MEDS ORDERED: EPHEDRINE SULF 50 MG/ML VIAL ONE (14:27)
[2024-05-22] MEDS ORDERED: SUCCINYLCHOLINE 20 MG/ML (10 ML) IV ONE (14:39)
[2024-05-22] MEDS: SUGAMMADEX SODIUM 200 MG/2 ML VIAL IV ONE (14:40)
[2024-05-22] MEDS ORDERED: dexAMETHasone 4 MG/ML VIAL ONE (15:16)
[2024-05-22] MEDS ORDERED: NALOXONE 0.4 MG/ML VIAL IV PRN (15:36)
--- NOTE | 2024-05-22 15:40 | P.OP ---
Date of Service: 05/22/24 Preop diagnosis: Perforated duodenal ulcer Postop diagnosis: Same, adhesions Procedure performed: Exploratory laparotomy, lysis of adhesion Marcelo patch repair of a perforated duodenal ulcer Surgeon: Adin Zaragoza MD Suede Cleaner: Shanita GREENE Estimated blood loss: Minimal Specimen: None Findings: Perforated duodenal ulcer in the first portion of the duodenum anteriorly Anesthesia: General Complications: None Drains: AZUL #10 flat Fluids and blood products: Nonapplicable Disposition: Recovery room Operative note: Patient brought to the OR and placed in supine position. General anesthesia began. 10 blade used to make a midline incision from the epigastric region just to below the umbilicus. Subcutaneous tissue divided and bleeding controlled cautery. There was a port for the gastric band just left of the midline which was avoided during the surgery. Fascia identified and divided. Peritoneal cavity entered with sharp and blunt dissection. Exploratory laparotomy revealed normal GE junction the NG tube to be placed in the antrum of the stomach. There was a 5 mm perforation in the first portion of the duodenum anteriorly. There was some murky fluid in this area which was aspirated. This area was thoroughly irrigated and clear effluent was obtained. LigaSure used to make a piece of omentum mobile enough to fit over the perforated duodenal ulcer site. Then 3-0 silk used to secure the omentum to the stomach surrounding the perforated area. Complete coverage of this area accomplished. Entire abdomen was irrigated and effluent was clear. Jack- De La Cruz drain #10 flat was placed over the repair. This was secured with 3-0 nylon. Then the midline fascia was closed with running #2 nylon. Wound irrigated bleeding controlled cautery. 3-0 chromic used to reapproximate subcutaneous fat loosely. Florian used to close skin. Sterile dressing applied. Patient awakened and taken to recovery room in good general condition. CC:
[2024-05-22] MEDS: MEPERIDINE HCL 25 MG/ML SYR ONE (15:53)
[2024-05-22] MEDS: PIPER TAZO 3.375 GM in NA CHLORIDE 0.9% 100 ML IV SCH (17:05)
[2024-05-22] MEDS: HYDROMORPHONE/PCA 10 MG/50 ML SYR IV PRN (17:05)
[2024-05-22] MEDS: HYDROMORPHONE HCL 1 MG/ML INJ IV PRN (18:05)
[2024-05-22 18:32] LABS: Hematocrit 37.2 % (36.0-45.0); Hemoglobin 12.4 g/dL (12.0-15.0)
[2024-05-22] MEDS: IPRATROPIUM BROM 0.5MG/2.5ML ONE (22:30)
[2024-05-22] MEDS: ALBUTEROL 2.5 MG/3 ML NEB SOL ONE (22:30)
[2024-05-22 23:10] LABS: Blood Gas Oxyhemoglobin 90.7 % (94-97); Blood O2 Saturation 92.5 % (92-98.5)
[2024-05-22 23:11] LABS: Arterial Blood Carboxyhemoglob 0.8 % (0-1.5)
[2024-05-22 23:12] LABS: Blood Gas THB 12.9 g/dl (12-18)
[2024-05-22] MEDS: FUROSEMIDE 20 MG/ 2ML VIAL IV ONE (23:24)
--- NOTE | 2024-05-22 23:28 | P.PN ---
Date of Service: 05/23/24 Subjective Patient still having a lot of pain. Otherwise, she is awake and alert and interacting more appropriately. Will start physical therapy at this time. Physical Examination - Physical Exam General: Alert, In no apparent distress, Oriented x3 HEENT: NG tube to suction Respiratory: Clear to auscultation bilaterally, Normal air movement Cardiovascular: Regular rate/rhythm, Normal S1 S2 Gastrointestinal: Hypoactive, No guarding, Distended, Tenderness, Rebound Musculoskeletal: No clubbing, No swelling, No tenderness Neurological: Normal speech, Normal tone, Sensation intact, Cranial nerves 3-12 intact, Normal affect, Abnormal gait, Abnormal strength Assessment & Plan - Problems (Diagnosis) (1) Perforated duodenal ulcer Current Visit: Yes Status: Acute - Plan Continue with plan of care as mentioned below: -management per surgery -PT evaluation -DVT prophylaxis -IV hydration and IV antibiotics -Continue with NPO -pain control -continue NG tube to suction; if any issues with NG to will notify General surgery. Not to replace nasogastric tube without surgical discussion Discharge Plan: Home Plan to discharge in: Greater than 2 days - Advance Directives Does patient have a Living Will: No Does patient have a Durable POA for Healthcare: No - Code Status/Comfort Care Code Status Assessed: Yes Code Status: Full Code Critical Care: Yes Time Spent Managing PTS Care (In Minutes): 35
[2024-05-23] MEDS: NA CHLORIDE 0.9% 100 ML ONE ×2 (00:47→09:42)
[2024-05-23] MEDS: IPRATROPIUM BROM 0.5MG/2.5ML NEB SCH (02:03)
[2024-05-23] MEDS: ALBUTEROL 2.5 MG/3 ML NEB SOL NEB SCH (02:03)
[2024-05-23 05:44] LABS: Absolute Lymphocytes (CBC) 0.5 K/uL (0.7-4.9); Absolute Monocytes 0.4 K/uL (0.1-1.3); Absolute Neutrophil 9.1 K/uL (1.8-8.0); Basophils % 0.2 % (0-1.3); Hematocrit 36.5 % (36.0-45.0); Hemoglobin 11.5 g/dL (12.0-15.0); MCH 27.8 pg (27.0-35.0); MCHC 31.6 g/dL (32.0-36.0); MCV 88.2 fL (80-100); MPV 7.6 fL (7.6-11.3); Monocytes % 4.1 % (3.3-12.3); Neutrophils % 90.7 % (41.7-73.7); Platelets 185 thou/uL (152-406); RBC Red Blood Cell Count 4.14 M/uL (3.86-4.86); Red Cell Distribution Width 13.8 % (12.1-15.2)
[2024-05-23 05:50] LABS: PT Prothrombin Time 13.7 SECONDS (9.4-12.5); PTT, Activated Partial Thromb 37.1 SECONDS (24.3-36.9); Protime INR 1.23
[2024-05-23 06:01] LABS: Anion Gap 9.6 mEq/L (5.0-15.0); Phosphorus 3.1 mg/dL (2.5-4.9); Potassium 4.6 mEq/L (3.5-5.1)
[2024-05-23] MEDS ORDERED: PHENOL 1.4% ORAL SPRAY 180ML MM PRN (06:19)
[2024-05-23 06:35] LABS: Blood Morphology Comment NOT SEEN (NOT SEEN); Platelet Estimate ADEQ; White Blood Cell Scan OK (OK)
[2024-05-23] MEDS: ENOXAPARIN 40 MG/0.4 ML SQ SCH (09:41)
[2024-05-23] MEDS: PIPERACIL/TAZO 3.375 GM VIAL IV ONE (09:42)
[2024-05-23] MEDS: PANTOPRAZOLE INJ 80 MG in NA CHLORIDE 0.9% 250 ML IV SCH (09:43)
[2024-05-23] MEDS: NA CHLORIDE 0.9% 1,000 ML IV SCH (11:26)
[2024-05-23] MEDS: NA CHLORIDE 0.9% 250 ML IV ONE (11:26)
--- NOTE | 2024-05-23 12:33 | PN ---
Date of Progress Note: 05/23/2024 Subjective: The patient is complaining of incisional and abdominal pain. Her urine output has been good. Her vitals are stable. However, blood pressures had been low on the systolic side between 90 and 100. Her heart rate is in the 60s. Urine output is good, and respiratory rate is good and she i s afebrile. Laboratory Data: Reviewed. White count is 10,000. H and H are essentially stable. INR is 1.23. H er ABG shows a pO2 of 64, pCO2 of 50. The patient does have COVID as well. Her abdomen is slightly distended. Hypoactive bowel sounds. D ressing is clean, dry, intact. There is incisional tenderness. No peritonitis. Her AZUL drain has se rosanguineous fluid out of it and the output has been 90 cc over the last shift. Assessment: Status post Marcelo patch repair of perforated duodenal ulcer. Recommendations: We will give her an IV bolus and increase her IV fluids and see if we can bring her blood pressure back and thereafter we can perhaps give her pain medicine more frequently and manage her pain a little bit better. We will encourage her to work with Physical Therapy and use the incDigiFit elan spirometry. Continue antibiotics. Continue proton-pump inhibitor. We will get a study later th is week to make sure that the perforation is sealed before beginning oral diet. The patient would be nefit from parenteral nutrition. We will get a PICC line and start TPN as well, as patient has not e aten since Wednesday and I do not anticipate her eating until at the earliest Wednesday or Wednesday, this week. /MODL Voice ID: [id number] Report ID: [id number]
--- NOTE | 2024-05-23 13:30 | RAD REPORT ---
EXAM DESCRIPTION: RAD - Chest Single View - 05/22/2024 10:56 pm CLINICAL HISTORY: Low o2, respiratory congestion COMPARISON: None. FINDINGS: 1 view(s) of the chest. Tubes and lines: Leads overlie the chest. NG tube with tip in the distal stomach. Cardiomediastinal silhouette: Cardiomegaly. Lungs: No consolidation, pneumothorax, or pleural effusion. Low lung volumes. Elevation right hemidia phragm. Bones: Degenerative change of the spine. Upper abdomen: No additional findings. IMPRESSION: 1. No acute pneumonic process. Low lung volumes. NG tube with tip in appropriate posit ion. 2. Cardiomegaly. Electronically signed by: Juan Raman DO 05/22/2024 11:19 PM CDT RP [id number] Due to temporary technical issues with the PACS/Fluency reporting system, reports are being signed by the in house radiologists without review as a courtesy to insure prompt reporting. The interpreting radiologist is fully responsible for the content of the report.
[2024-05-23] MEDS: LORazepam 2 MG/ML VIAL IV ONE (15:07)
--- NOTE | 2024-05-23 15:50 | RAD REPORT ---
EXAM DESCRIPTION: RAD - Chest Single View - 05/23/2024 3:41 pm CLINICAL HISTORY: PICC line (right side) FINDINGS: Portable chest was obtained following placement of a right upper extremity PICC line. The catheter tip projects over the SVC..
[2024-05-23] MEDS: AA 5%/D20W/ELECTROLYTES-TPN 2,000 ML, Lipids 20% 250 ML with MULTIVITAMINS INJ 10 ML IV ONE (18:22)
[2024-05-23] MEDS: Mupirocin NASAL 2 APPL/1 GM TUBE NAS SCH (20:06)
[2024-05-24 08:06] LABS: MPV 7.4 fL (7.6-11.3)
[2024-05-24 09:33] LABS: Hematocrit 33.1 % (36.0-45.0); Hemoglobin 10.5 g/dL (12.0-15.0); RBC Red Blood Cell Count 3.74 M/uL (3.86-4.86)
[2024-05-24 09:34] LABS: MCH 28.1 pg (27.0-35.0); MCHC 31.8 g/dL (32.0-36.0); MCV 88.3 fL (80-100); Platelets 204 thou/uL (152-406)
[2024-05-24 09:34] LABS: Albumin 2.4 g/dL (3.4-5.0); Albumin/Globulin Ratio 0.7 (1.1-1.8); Anion Gap 8.2 mEq/L (5.0-15.0); Bilirubin Total 0.2 mg/dL (0.2-1.0); Globulin 3.6 g/dL (2.3-3.5); Potassium 4.2 mEq/L (3.5-5.1)
[2024-05-24 09:35] LABS: Basophils % 0.1 % (0-1.3); Lymphocytes % 6.1 % (15.3-44.8); Monocytes % 4.9 % (3.3-12.3); Neutrophils % 88.9 % (41.7-73.7); Red Cell Distribution Width 14.5 % (12.1-15.2)
[2024-05-24 09:36] LABS: Absolute Lymphocytes (CBC) 0.8 K/uL (0.7-4.9); Absolute Monocytes 0.7 K/uL (0.1-1.3); Absolute Neutrophil 11.9 K/uL (1.8-8.0)
--- NOTE | 2024-05-24 09:51 | PN ---
Date of Progress Note: 05/24/2024 Subjective: The patient is awake, alert. She has pain when she coughs and she does have COVID as we ll. Her vital signs are stable. She is currently afebrile. I's and O's reviewed. Drain put out 90 cc of serosanguineous fluid and last shift recorded in the medical records, NG tube output is 150 cc . Laboratory data shows white count 10.6, there is a slight left shift. Chemistry reviewed. The boris santos is on TPN now. Abdomen is soft, nondistended. Minimal incisional tenderness. Dressing is nam an, dry, and intact. Assessment: Status post Marcelo patch repair of perforated duodenal ulcer. Recommendations: Continue proton pump inhibitor, IV antibiotic, NG tube. We will get a study on Wed to make sure the perforation is sealed, and then we will begin oral diet. The patient is clinica lly stable and slowly improving. /MODL Voice ID: [id number] Report ID: [id number]
[2024-05-24] MEDS: ALBUTEROL INHALER 200 PUFF/6.7 GM IH PRN (13:36)
[2024-05-24] MEDS ORDERED: AA 5%/D20W/ELECTROLYTES-TPN 2,000 ML, Lipids 20% 250 ML with MULTIVITAMINS INJ 10 ML IV SCH (17:00)
[2024-05-24] MEDS: AMINO ACIDS 5 %/DEXTROSE 20 % 2,000 ML, Lipids 20% 250 ML with MULTIVITAMINS INJ 10 ML IV SCH (17:17)
[2024-05-25] MEDS: NA CHLORIDE 0.9% 1,000 ML IV SCH (09:00)
--- NOTE | 2024-05-25 10:12 | PN ---
Date of Progress Note: 05/25/2024 Subjective: Patient is awake, alert. The pain is better. Vital signs are stable. She is afebrile. AZUL drain put out 40 cc in the last shift of serosanguineous fluid. NG tube has minimal output. Objective: Abdomen: Soft, nondistended. Positive bowel sounds. Dressing is clean, dry, intact. Laboratory Data: Reviewed from yesterday. White count is slightly up. Assessment: Status post repair of perforated duodenal ulcer. Recommendations: Continue proton-pump inhibitor and IV antibiotics. We will get either a CT of the abdomen with oral contrast or upper GI tomorrow morning to make sure that the ulcer has sealed and th en we will begin diet based on the results. Continue present management. The patient is clinically improving. Encouraged ambulation and incentive spirometry as well. /MODL Voice ID: [id number] Report ID: [id number]
--- NOTE | 2024-05-25 10:14 | P.PN ---
Date of Service: 05/24/24 Subjective Patient's pain has improved. She is getting out of bed and working with physical therapy. Overall, her clinical status has improved. Continue with NG tube to suction at this time and surgical management will guide patient's medical care at this time. Continue with physical therapy and supportive care. Physical Examination - Physical Exam General: Alert, In no apparent distress, Oriented x3 HEENT: NG tube to suction Respiratory: Clear to auscultation bilaterally, Normal air movement Cardiovascular: Regular rate/rhythm, Normal S1 S2 Gastrointestinal: Hypoactive, No guarding, Distended, Tenderness, Rebound Musculoskeletal: No clubbing, No swelling, No tenderness Neurological: No focal deficits Assessment & Plan - Problems (Diagnosis) (1) Perforated duodenal ulcer Current Visit: Yes Status: Acute - Plan Continue with plan of care as mentioned below: -Continue management per general surgery -PT evaluation completed and patient participating well -DVT prophylaxis -Continue with gentle IV hydration and IV antibiotics; patient started on TPN -Continue with NPO -pain control -continue NG tube to suction; if any issues with NG to will notify General surgery. Not to replace nasogastric tube without surgical discussion Discharge Plan: Home Plan to discharge in: Greater than 2 days - Advance Directives Does patient have a Living Will: No Does patient have a Durable POA for Healthcare: No - Code Status/Comfort Care Code Status Assessed: Yes Code Status: Full Code Critical Care: NO Time Spent Managing PTS Care (In Minutes): 35
--- NOTE | 2024-05-25 10:36 | P.PN ---
Date of Service: 05/25/24 Subjective Patient complaining of shortness of breath. chest x-ray shows some pulmonary edema. Patient was diuresed and feeling much better. Physical Examination - Physical Exam General: Alert, In no apparent distress, Oriented x3 HEENT: NG tube to suction; minimal JVP Respiratory: Clear to auscultation bilaterally, Patient with basilar crackles Cardiovascular: Regular rate/rhythm, Normal S1 S2 Gastrointestinal: Hypoactive, No guarding, Distended, Tenderness, Rebound Musculoskeletal: No clubbing, No swelling, No tenderness Neurological: No focal deficits Assessment & Plan - Problems (Diagnosis) (1) Perforated duodenal ulcer Current Visit: Yes Status: Acute (2) Dyspnea at rest Current Visit: Yes Status: Acute - Plan Continue with plan of care as mentioned below: -chest x-ray reviewed with pulmonary edema; status post diuresis. -PT- patient participating well -DVT prophylaxis -Continue with gentle IV hydration and IV antibiotics; patient started on TPN -Continue with NPO -pain control -continue NG tube to suction; if any issues with NG to will notify General surgery. Not to replace nasogastric tube without surgical discussion Discharge Plan: Home Plan to discharge in: Greater than 2 days - Advance Directives Does patient have a Living Will: No Does patient have a Durable POA for Healthcare: No - Code Status/Comfort Care Code Status Assessed: Yes Code Status: Full Code Critical Care: NO Time Spent Managing PTS Care (In Minutes): 30
--- NOTE | 2024-05-25 11:26 | RAD REPORT ---
EXAM DESCRIPTION: Lashawn Single View05/25/2024 10:48 am CLINICAL HISTORY: Shortness of breath COMPARISON: May 23, 2024 FINDINGS: Mild bibasilar atelectasis. Probable small pleural effusions Upper lobes appear clear Heart is mildly enlarged. PICC line in place. Nasogastric tube enters the stomach. The tip is not clearly visualized on this ch est x-ray
[2024-05-25] MEDS ORDERED: FUROSEMIDE 20 MG/ 2ML VIAL IV SCH (12:00)
[2024-05-25] MEDS: ALBUMIN HUMAN 25% 50 ML IV SCH (12:29)
[2024-05-25] MEDS: FUROSEMIDE 20 MG/ 2ML VIAL IV SCH (12:29)
[2024-05-25] MEDS ORDERED: ALBUTEROL 2.5 MG/3 ML NEB SOL NEB PRN (14:12)
[2024-05-25] MEDS ORDERED: IPRATROPIUM BROM 0.5MG/2.5ML NEB PRN (14:13)
[2024-05-25] MEDS ORDERED: AA 5%/D20W/ELECTROLYTES-TPN 2,000 ML IV SCH (17:00)
[2024-05-25] MEDS: AMINO ACIDS 5 %/DEXTROSE 20 % 2,000 ML IV SCH (17:06)
[2024-05-25] MEDS: ONDANSETRON 4 MG/2 ML VIAL IV PRN (22:49)
[2024-05-26 06:53] LABS: Absolute Eosinophils 0.1 K/uL (0-0.5); Absolute Lymphocytes (CBC) 1.9 K/uL (0.7-4.9); Absolute Monocytes 0.7 K/uL (0.1-1.3); Absolute Neutrophil 4.5 K/uL (1.8-8.0); Basophils % 0.1 % (0-1.3); Hematocrit 30.4 % (36.0-45.0); Hemoglobin 10.1 g/dL (12.0-15.0); Lymphocytes % 26.3 % (15.3-44.8); MCH 28.4 pg (27.0-35.0); MCHC 33.3 g/dL (32.0-36.0); MCV 85.3 fL (80-100); MPV 6.9 fL (7.6-11.3); Monocytes % 9.4 % (3.3-12.3); Neutrophils % 62.2 % (41.7-73.7); Nucleated Red Blood Cells % 0.1 % (0-0); Platelets 257 thou/uL (152-406); RBC Red Blood Cell Count 3.56 M/uL (3.86-4.86); Red Cell Distribution Width 13.7 % (12.1-15.2)
--- NOTE | 2024-05-26 09:19 | RAD REPORT ---
EXAM DESCRIPTION: CTAbdomen Wo Contrast - 05/26/2024 9:02 am CLINICAL HISTORY: S/P perforated duodenal ulcer COMPARISON: No comparisons TECHNIQUE: CT of the abdomen was performed with enteric contrast . All CT scans are performed using dose optimization technique as appropriate and may include automated exposure control or mA/KV adjustment according to patient size. FINDINGS: Lower chest: Small bilateral pleural effusions. Likely overlying atelectasis. Suspect mild pulmonary edema as well. Mild distal esophageal wall thickening which is similar. Liver: Unchanged low-density liver lesions. Biliary: Distended gallbladder. No biliary duct dilatation. Stomach: Gastric banding. Duodenum: Status post duodenal ulcer repair. Along the lateral aspect of the second portion the duode num, some localized extraluminal gas (versus Surgicel) is noted. This is not unexpected. No extralumi nal enteric contrast identified to suggest leak. Pancreas: No significant abnormality. Spleen: No significant abnormality. Adrenal: No suspicious lesions. Kidney/ureter: No hydronephrosis. No renal calculi. Retroperitoneum: No retroperitoneal adenopathy. Vascular: No aneurysm. Atherosclerosis. Bowel: Normal appendix. No bowel obstruction.. Peritoneum: Surgical drains in place. Bones: No acute fracture. Other: n/a IMPRESSION: Status post perforated duodenal ulcer repair. No leak identified. Small volume of extral uminal gas near the repair is likely postsurgical and not unexpected. No abscess identified. Small bilateral pleural effusions with associated atelectasis. Mild pulmonary edema also suspected.
--- NOTE | 2024-05-26 13:27 | PN ---
Date of Progress Note: 05/26/2024 Subjective: The patient is awake, alert. Feels a little uncomfortable after taking in the oral cont rast for the CT of the abdomen. Objective: Vital Signs: Stable. Afebrile. Abdomen: Benign. Laboratory Data: Reviewed. White count is normal. The AZUL drain has serosanguineous fluid in it and it put out [address] of the abdomen and pelvis reviewed and does not show any evidence o f leak, just some postop changes. Assessment: Status post repair of perforated duodenal ulcer. Recommendations: Continue antibiotics and proton-pump inhibitor as ordered. Clamp NG tube and begin clear liquids. Wean TPN down if liquids are tolerated. Hopefully, discharge in a couple of days. /MODL Voice ID: [id number] Report ID: [id number]
[2024-05-26] MEDS: FLUCONAZOLE 200mg IVPB 100 MG/50 ML BAG IV SCH (18:00)
[2024-05-27 05:56] LABS: Absolute Eosinophils 0.3 K/uL (0-0.5); Absolute Lymphocytes (CBC) 1.8 K/uL (0.7-4.9); Absolute Monocytes 0.5 K/uL (0.1-1.3); Absolute Neutrophil 4.1 K/uL (1.8-8.0); Basophils % 0.3 % (0-1.3); Eosinophils % 4.7 % (0-4.4); Hemoglobin 9.7 g/dL (12.0-15.0); Lymphocytes % 26.8 % (15.3-44.8); MCH 28.7 pg (27.0-35.0); MCHC 33.7 g/dL (32.0-36.0); MCV 85.3 fL (80-100); MPV 6.8 fL (7.6-11.3); Monocytes % 7.6 % (3.3-12.3); Neutrophils % 60.6 % (41.7-73.7); Nucleated Red Blood Cells % 0.3 % (0-0); Platelets 250 thou/uL (152-406); RBC Red Blood Cell Count 3.39 M/uL (3.86-4.86); Red Cell Distribution Width 13.4 % (12.1-15.2)
[2024-05-27 06:11] LABS: Albumin/Globulin Ratio 0.7 (1.1-1.8); Anion Gap 5.7 mEq/L (5.0-15.0); Bilirubin Total 0.3 mg/dL (0.2-1.0); Magnesium 1.4 mg/dL (1.6-2.4); Potassium 2.7 mEq/L (3.5-5.1)
[2024-05-27] MEDS: KCL 20 MEQ/100 mL IVPB 20 MEQ/100 ML BAG IV SCH (06:58)
[2024-05-27] MEDS: Magnesium Sulfate 2gm IVPB 2 G/50 ML BAG IV ONE ×2 (06:58→08:00)
--- NOTE | 2024-05-27 07:54 | PN ---
Date of Progress Note: 05/27/2024 Subjective: The patient is awake, alert. Tolerating clear liquids. Had NG tube removed yesterday. No nausea or vomiting. Vitals stable, afebrile. Laboratory data reviewed. Potassium is being repl aced. AZUL put out 110 cc of serosanguineous fluid. Abdomen is benign. Wound is clean, dry, and inta ct. Assessment: Status post Marcelo patch repair of perforated duodenal ulcer. Recommendations: We will advance diet. Decrease TPN. Discontinue IV fluids. Replace electrolytes. Encourage ambulation and incentive spirometry. The patient is doing well and improving slowly. Missy cook discharge in 24 to 48 hours. /MODL Voice ID: [id number] Report ID: [id number]
[2024-05-27] MEDS: ALBUMIN HUMAN 25% 100 ML IV ONE (09:23)
[2024-05-27] MEDS: FUROSEMIDE 20 MG/ 2ML VIAL IV SCH (09:52)
[2024-05-27] MEDS: DIPHENOX/ATROP SULF 1 TAB PO ONE (14:24)
[2024-05-27] MEDS: HYDROCODONE/APAP 7.5/325 MG TAB PO PRN (17:36)
[2024-05-27] MEDS: BENZONATATE 100 MG CAP PO PRN (17:36)
[2024-05-27] MEDS ORDERED: SODIUM CHLORIDE 0.9% 10ML INJ IV PRN (18:17)
[2024-05-27] MEDS: PANTOPRAZOLE 40 MG INJ IVP SCH (21:05)
[2024-05-28 06:02] LABS: Absolute Eosinophils 0.3 K/uL (0-0.5); Absolute Lymphocytes (CBC) 1.9 K/uL (0.7-4.9); Absolute Monocytes 0.7 K/uL (0.1-1.3); Absolute Neutrophil 3.5 K/uL (1.8-8.0); Basophils % 0.6 % (0-1.3); Eosinophils % 4.3 % (0-4.4); Hematocrit 28.9 % (36.0-45.0); Hemoglobin 9.5 g/dL (12.0-15.0); Lymphocytes % 29.7 % (15.3-44.8); MCH 28.3 pg (27.0-35.0); MCHC 32.9 g/dL (32.0-36.0); MCV 85.8 fL (80-100); MPV 7.3 fL (7.6-11.3); Monocytes % 10.5 % (3.3-12.3); Neutrophils % 54.9 % (41.7-73.7); Platelets 260 thou/uL (152-406); RBC Red Blood Cell Count 3.37 M/uL (3.86-4.86); Red Cell Distribution Width 13.2 % (12.1-15.2)
[2024-05-28 06:23] LABS: Anion Gap 5.6 mEq/L (5.0-15.0); Phosphorus 2.3 mg/dL (2.5-4.9)
[2024-05-28 06:28] LABS: Potassium 2.6 mEq/L (3.5-5.1)
[2024-05-28 07:53] LABS: Band Neutrophils 3 % (0-1); Blood Morphology Comment NOTED (NOT SEEN); Differential Total Cells Count 100; Eosinophils 6 % (0-3); Hypochromasia 1+; Lymphocytes 23 % (15-42); Monocytes 7 % (0-10); Platelet Estimate ADEQ; Polychromasia 1+; Segmented Neutrophils 61 % (40-80)
[2024-05-28] MEDS: POTASSIUM PHOS IN 0.9 % NACL 15 MMOL/250 ML BAG IV SCH (08:00)
[2024-05-28] MEDS: KCL 20 MEQ/100 mL IVPB 20 MEQ/100 ML BAG IV SCH (08:48)
[2024-05-28] MEDS ORDERED: POTASSIUM PHOS IN 0.9 % NACL 15 MMOL/250 ML BAG IV ONE (09:00)
[2024-05-28 12:44] VITALS: BMI 29.4
[2024-05-28] MEDS: FLUCONAZOLE 100 MG TAB PO SCH (16:29)
--- NOTE | 2024-05-28 23:34 | P.PN ---
Date of Service: 05/28/24 Subjective Patient doing better. Still having some pain in her left leg. Examined patient and patient has what feels to be a little lump there with possible lymphadenopathy. Continue with PPI and antibiotics. Working on discharge planning. Physical Examination - Physical Exam General: Alert, In no apparent distress, Oriented x3 HEENT: Within normal limits Respiratory: Clear to auscultation bilaterally, Cardiovascular: Regular rate/rhythm, Normal S1 S2 Gastrointestinal: soft; minimal tenderness with no distention bowel sounds hypoactive Musculoskeletal: No clubbing, No swelling, No tenderness Neurological: No focal deficits Assessment & Plan - Problems (Diagnosis) (1) Perforated duodenal ulcer Current Visit: Yes Status: Acute (2) Dyspnea at rest Current Visit: Yes Status: Acute - Plan Continue with plan of care as mentioned below: -patient's respiratory status has improved. -PT; patient participating well -DVT prophylaxis -Continue with gentle IV hydration and IV antibiotics; patient started on TPN; Plan to wean off the TPN. -diet as tolerated -pain control -DC NG tube. Discharge Plan: Home Plan to discharge in: Greater than 2 days - Advance Directives Does patient have a Living Will: No Does patient have a Durable POA for Healthcare: No - Code Status/Comfort Care Code Status Assessed: Yes Code Status: Full Code Critical Care: NO Time Spent Managing PTS Care (In Minutes): 30
--- NOTE | 2024-05-28 23:38 | P.PN ---
Date of Service: 05/27/24 Subjective Patient is doing better. Patient denies any new complaints. Has a lump on her left leg that feels like a lymph node. No tenderness. Physical Examination - Vitals reviewed - Physical Exam General: Alert, In no apparent distress, Oriented x3 HEENT: Within normal limits Respiratory: Clear to auscultation bilaterally, Cardiovascular: Regular rate/rhythm, Normal S1 S2 Gastrointestinal: soft; minimal tenderness with no distention bowel sounds hypoactive Musculoskeletal: No clubbing, No swelling, No tenderness Neurological: No focal deficits Assessment & Plan - Problems (Diagnosis) (1) Perforated duodenal ulcer Current Visit: Yes Status: Acute (2) Dyspnea-in a patient with a history of COVID-19 Current Visit: Yes Status: Acute - Plan Continue with plan of care as mentioned below: -patient's respiratory status has improved. -PT; patient participating well -DVT prophylaxis -Plan to wean off the TPN. -diet as tolerated -pain control -DC NG tube. Discharge Plan: Home Plan to discharge in: Greater than 2 days - Advance Directives Does patient have a Living Will: No Does patient have a Durable POA for Healthcare: No - Code Status/Comfort Care Code Status Assessed: Yes Code Status: Full Code Critical Care: NO Time Spent Managing PTS Care (In Minutes): 30
--- NOTE | 2024-05-28 23:39 | P.PN ---
Date of Service: 05/26/24 Subjective Pt continues to improve with no new complaints. The patient denies any complaints. Physical Examination - Vitals reviewed - Physical Exam General: Alert, In no apparent distress, Oriented x3 Respiratory: Clear to auscultation bilaterally, Cardiovascular: Regular rate/rhythm, Normal S1 S2 Gastrointestinal: soft; minimal tenderness with no distention bowel sounds hypoactive Musculoskeletal: No clubbing, No swelling, No tenderness Neurological: No focal deficits Assessment & Plan - Problems (Diagnosis) (1) Perforated duodenal ulcer Current Visit: Yes Status: Acute (2) Dyspnea-in a patient with a history of COVID-19 Current Visit: Yes Status: Acute - Plan Continue with plan of care as mentioned below: -patient's respiratory status has improved. -PT; out of bed and ambulate and bedside with meals -DVT prophylaxis -Plan to wean off the TPN. -diet as tolerated -pain control Discharge Plan: Home Plan to discharge in: Greater than 2 days - Advance Directives Does patient have a Living Will: No Does patient have a Durable POA for Healthcare: No - Code Status/Comfort Care Code Status Assessed: Yes Code Status: Full Code Critical Care: NO Time Spent Managing PTS Care (In Minutes): 30
[2024-05-29 06:15] LABS: Phosphorus 2.9 mg/dL (2.5-4.9)
[2024-05-29] MEDS ORDERED: KCL 20 MEQ/100 mL IVPB 20 MEQ/100 ML BAG IV SCH (08:00)
[2024-05-29] MEDS ORDERED: POTASSIUM CL 40 MEQ in NA CHLORIDE 0.9% 500 ML IV SCH (08:00)
[2024-05-29] MEDS: POTASSIUM CL SA 10 MEQ TAB PO ONE (08:26)
[2024-05-29 09:14] VITALS: O2SAT 95
--- NOTE | 2024-05-29 10:30 | RAD REPORT ---
EXAM DESCRIPTION: US - Extremity Nonvascular Limited - 05/29/2024 10:00 am CLINICAL HISTORY: lump to the left lower extremity Pain and swelling COMPARISON: No comparisons TECHNIQUE: Real-time sonographic evaluation of the area of interest was performed the left lateral t high. FINDINGS: 2.2 cm oblong lesion is seen in the left lateral thigh area of interest. This appears some what isoechoic relative to the adjacent muscles. This is non-aggressive in appearance. MR imaging may be of value to further workup this lesion if clinically needed.
--- NOTE | 2024-05-29 10:57 | P.PN ---
Subjective Date of Service: 05/29/24 Chief Complaint: Perforated duodenal ulcer Pt is resting comfortably in bed. She complains of abdominal pain. Will increase norco to 10/325mg po Q4h prn. K is 3.0. Will replete. No other complaints. Review of Systems General: Unremarkable Eyes: Unremarkable ENT: Unremarkable Respiratory: Unremarkable Cardiovascular: Unremarkable Gastrointestinal: Abdominal Pain Genitourinary: Unremarkable Musculoskeletal: Unremarkable Integumentary: Unremarkable Neurological: Unremarkable Lymphatics: Unremarkable Physical Examination - Vital Signs Temperature: 97.6 F Blood Pressure: 135/76 Pulse: 64 Respirations: 18 Pulse Ox (%): 96 - Physical Exam General: Alert, In no apparent distress, Oriented x3 HEENT: Atraumatic, Normocephalic, PERRLA Neck: Supple, 2+ carotid pulse no bruit, JVD not distended Respiratory: Clear to auscultation bilaterally, Normal air movement Cardiovascular: No edema, Normal pulses, Regular rate/rhythm, Normal S1 S2 Capillary refill: <2 Seconds Gastrointestinal: Normal bowel sounds, Soft and benign, Non-distended Musculoskeletal: No clubbing, No swelling, No contractures Integumentary: No rashes, No breakdown, No significant lesion, No tenderness/swelling Neurological: Normal gait, Normal speech, Normal strength at 5/5 x4 extr Lymphatics: No axilla or inguinal lymphadenopathy Assessment And Plan - Plan Perforated Duodenal ulcer: s/p Ex-lap on 05/22/24. Will continue gentle IVF, TPN and zosyn. Will f/u cx. Hypokalemia: K is 3.0/ Will replete and monitor. Dyspnea: Will continue BNC. DVT ppx: SCD Nutrition: Will wean off TPN. Dispo: Pending hospital course.
[2024-05-29] MEDS ORDERED: HYDROMORPHONE HCL 1 MG/ML INJ IV ONE (11:30)
[2024-05-29 16:05] VITALS: TEMP 97.6
[2024-05-29] MEDS: HYDROCODONE/APAP 10/325 TAB PO PRN (16:10)
--- NOTE | 2024-05-29 17:25 | P.DS ---
Admission Date: 05/22/24 Discharge Date: 05/29/24 Disposition: ROUTINE DISCHARGE Discharge Condition: GOOD Reason for Admission: Perforated duodenal ulcer Brief History of Present Illness: The patient is a 63-year-old female presents with severe abdominal pain. Patient was in the ER a couple of days ago with upper respiratory symptoms and found to have COVID and started on Paxlovid. Patient's having severe abdominal pain and was seen in the ER by General surgery after CT imaging revealed pneumoperitoneum. Patient with a history of lap band surgery and patient has had a questionable GI bleed in the past. Patient's labs are stable and patient is hemodynamically is stable at this time. Patient with acute abdomen and will be taken to the OR for emergent surgical intervention. Patient will be admitted to the ICU for continued treatment. Continue monitor hemodynamics closely. Hospital Course: Pt is a 63yo female with past medical history of morbid obesity s/p gastric lap band who presents with severe abdominal pain. Of note, pt was in the ER a couple of days ago with upper respiratory symptoms and found to have COVID and started on Paxlovid. Upon this admission, CT abd showed pneumoperitoneum. We admitted pt for acute abdomen. Gen surgery took her to the OR for emergent surgical intervention. Gen surgeon noticed perforation in the duodenum. Patient was admitted in the ICU after the surgery and later down-graded to medicine floor. She well post op. We gave TPN, zosyn, weaned her pain med to norco 10/325mg and she also tolerated oral intake. We also repleted potassium. Pt requested to be discharged and Gen surgeon cleared her for discharge. Pt was in NAD prior to discharge. Vital Signs/Physical Exam: Temp Pulse Resp BP Pulse Ox 97.6 F 61 16 128/73 97 05/29/24 15:58 05/29/24 15:58 05/29/24 17:10 05/29/24 15:58 05/29/24 17:10 Laboratory Data at Discharge: WBC 6.30 thou/uL (4.3-10.9) 05/28/24 05:30 Hgb 9.5 g/dL (12.0-15.0) L 05/28/24 05:30 Hct 28.9 % (36.0-45.0) L 05/28/24 05:30 Plt Count 260 thou/uL (152-406) 05/28/24 05:30 PT 13.7 SECONDS (9.4-12.5) H 05/23/24 05:07 INR 1.23 05/23/24 05:07 APTT 37.1 SECONDS (24.3-36.9) H 05/23/24 05:07 Sodium 144 mEq/L (136-145) 05/29/24 05:30 Potassium 3.0 mEq/L (3.5-5.1) L D 05/29/24 05:30 BUN 9 mg/dL (7-18) 05/29/24 05:30 Creatinine 0.71 mg/dL (0.55-1.02) 05/29/24 05:30 Glucose 106 mg/dL (74-106) 05/29/24 05:30 Phosphorus 2.9 mg/dL (2.5-4.9) 05/29/24 05:30 Magnesium 2.0 mg/dL (1.6-2.4) 05/28/24 05:30 Total Bilirubin 0.3 mg/dL (0.2-1.0) 05/27/24 05:30 AST 27 U/L (15-37) 05/27/24 05:30 ALT 40 U/L (13-56) 05/27/24 05:30 Alkaline Phosphatase 48 U/L (45-117) 05/27/24 05:30 Lipase 23 U/L (13-75) 05/22/24 08:54 Home Medications: Dextroamphetamine/Amphetamine [Adderall 15 mg Tablet] 15 mg PO DAILY 03/18/22 LORazepam [Ativan*] 1 mg PO BID PRN 03/18/22 Hydrocodone Bit/Acetaminophen [[place] 7.5-325 Tablet] 1 each PO Q6HP PRN 05/23/24 Tirzepatide [Mounjaro] 15 mg SQ EVERY 7TH DAY 05/23/24 Albuterol Inhaler [Ventolin Inhaler*] 2 puff IH Q6H PRN #1 inh 05/29/24 Amoxicillin 500 mg PO BID #28 tab 05/29/24 Benzonatate [Tessalon Perle*] 100 mg PO TID PRN #30 cap 05/29/24 Hydrocodone 10/APAP 325 [[place] 10/325] 1 tab PO Q6H PRN #30 tab 05/29/24 Pantoprazole [Protonix Tab] 40 mg PO BID #60 tab 05/29/24 Potassium Chloride 20 meq PO DAILY 5 Days #5 tab 05/29/24 metroNIDAZOLE [Flagyl*] 500 mg PO Q8H #30 tab 05/29/24 New Medications: Amoxicillin 500 mg PO BID #28 tab metroNIDAZOLE [Flagyl*] 500 mg PO Q8H #30 tab Hydrocodone 10/APAP 325 [[place] 10/325] 1 tab PO Q6H PRN #30 tab PRN Reason: Pain Potassium Chloride 20 meq PO DAILY 5 Days #5 tab Pantoprazole [Protonix Tab] 40 mg PO BID #60 tab Benzonatate [Tessalon Perle*] 100 mg PO TID PRN #30 cap PRN Reason: Cough Albuterol Inhaler [Ventolin Inhaler*] 2 puff IH Q6H PRN #1 inh PRN Reason: Shortness Of Breath Physician Discharge Instructions: OK TO DC IV AND DC HOME FOLLOW-UP WITH PRIMARY CARE PROVIDER IN 1-2 WEEKS FOLLOW-UP WITH General surgery IN 1 WEEK RETURN TO THE ER IF symptoms worsen CALL DR. HERNÁNDEZ AT [phone] IF ANY QUESTIONS REGARDING HOSPITAL STAY. PLEASE CALL THE FLOOR AT [phone] IF ANY MEDICATION OR NURSING QUESTIONS. Remove outer dressing in a.m. and shower Keep wound clean and dry Record AZUL output every 12 bring, record to office Teach patient and family Strip AZUL tubing as needed Incentive spirometry as directed Diet: Regular Activity: Fall precautions Followup: OOT,OOT [Primary Care Provider] - 1-2 Weeks Adin Zaragoza MD [ACTIVE - CAN ADMIT] - 06/05/24 (call for an apointment)
[2024-05-29 17:37] VITALS: BP 135/76
[2024-05-29] MEDS ORDERED: Mupirocin NASAL 2 APPL/1 GM TUBE NAS SCH ×2 (21:00)
--- NOTE | 2024-06-05 13:09 | EKG ---
Test Date: 2024-05-26 Test Time: 12:51:53 [place] Installer: ELVA MEASUREMENT RESULTS: Intervals: Rate: 67 CT: 152 QRSD: 90 QT: 406 QTc: 429 [place]: P: 41 CT: 152 QRS: 2 T: -19 INTERPRETIVE STATEMENTS: Normal sinus rhythm Low voltage QRS Nonspecific ST and T wave abnormality Abnormal ECG Compared to ECG 05/20/2024 18:40:25 No significant changes Electronically Signed On 06-05-24 12:53:20 CDT by Mikey Etienne
== END 2024-05-29 18:18 | disposition home or self-care (01) | DRG 326 ==
LOC: ER 08:18 → ERHOLD 11:00 → 3RD-ICU 14:54 → 4TH 05-25 17:53
PROVIDERS: ADMIT Hospitalist; ATTEND Hospitalist
PROC: 4A033R1 Measurement of Arterial Saturation, Peripheral, Percutaneous Approach (ICD-10-PCS; 2024-05-22)
PROC: 0DQ90ZZ Repair Duodenum, Open Approach (ICD-10-PCS; principal; 2024-05-22 13:00)
PROC: 0T9B70Z Drainage of Bladder with Drainage Device, Via Natural or Artificial Opening (ICD-10-PCS; 2024-05-23)
PROC: 02HV33Z Insertion of Infusion Device into Superior Vena Cava, Percutaneous Approach (ICD-10-PCS; 2024-05-23)
PROC: 0DH67UZ Insertion of Feeding Device into Stomach, Via Natural or Artificial Opening (ICD-10-PCS; 2024-05-23)
PROC: 3E0436Z Introduction of Nutritional Substance into Central Vein, Percutaneous Approach (ICD-10-PCS; 2024-05-23)
DX: K26.5 Chronic or unspecified duodenal ulcer with perforation (principal); K65.9 Peritonitis, unspecified; U07.1 COVID-19; E87.6 Hypokalemia; K66.0 Peritoneal adhesions (postprocedural) (postinfection); Z88.5 Allergy status to narcotic agent; Z98.84 Bariatric surgery status; Z86.16 Personal history of COVID-19; Z79.899 Other long term (current) drug therapy; Z87.891 Personal history of nicotine dependence
CPT/HCPCS: 36415; 36569; 36600; 71045; 74150; 74177; 76882; 80048; 80053; 81001; 82805; 82947; 83690; 83735; 83880; 84100; 85014; 85018; 85025; 85610; 85730; 87045; 87046; 87070; 87205; 93005; 94010; 96361; 96372; 96374; 96375; 97110; 97116; 97161; 97530; 99285; J0500; J0694; J1100; J1170; J1450; J1650; J1940; J2001; J2175; J2250; J2270; J2354; J2405; J2470; J2543; J2704; J3010; J3475; J3480; J7030; J7040; J7050; J7120; J7613; J7644; P9047; Q9967

== ENCOUNTER 2024-07-03 08:08 | Emergency (ER) | payer OTHER, SELFPAY ==
[2024-07-03 08:51] LABS: Absolute Basophils 0.1 K/uL (0-0.5); Absolute Eosinophils 0.2 K/uL (0-0.5); Absolute Lymphocytes (CBC) 1.8 K/uL (0.7-4.9); Absolute Monocytes 0.5 K/uL (0.1-1.3); Absolute Neutrophil 3.1 K/uL (1.8-8.0); Basophils % 0.9 % (0-1.3); Eosinophils % 3.6 % (0-4.4); Hematocrit 38.5 % (36.0-45.0); Hemoglobin 12.8 g/dL (12.0-15.0); Lymphocytes % 31.8 % (15.3-44.8); MCHC 33.3 g/dL (32.0-36.0); MCV 87.1 fL (80-100); MPV 7.2 fL (7.6-11.3); Monocytes % 8.4 % (3.3-12.3); Neutrophils % 55.3 % (41.7-73.7); Nucleated Red Blood Cells % 0.1 % (0-0); Platelets 268 thou/uL (152-406); RBC Red Blood Cell Count 4.42 M/uL (3.86-4.86); Red Cell Distribution Width 14.6 % (12.1-15.2)
[2024-07-03 09:15] LABS: Albumin 3.3 g/dL (3.4-5.0); Albumin/Globulin Ratio 0.9 (1.1-1.8); Anion Gap 8.1 mEq/L (5.0-15.0); Bilirubin Total 0.3 mg/dL (0.2-1.0); Globulin 3.7 g/dL (2.3-3.5); Potassium 4.1 mEq/L (3.5-5.1)
[2024-07-03 09:21] LABS: Specific Gravity 1.021 (1.005-1.030); Urine Bilirubin NEGATIVE (Negative); Urine Blood Negative (Negative); Urine Clarity Clear (Clear); Urine Color Light-Yellow (Yellow); Urine Glucose NEGATIVE (Negative); Urine Ketones NEGATIVE (Negative); Urine Microscopic Reflex YN NO UMIC; Urine Nitrite NEGATIVE (Negative); Urine Protein NEGATIVE (Negative); Urine Urobilinogen Normal (Normal)
[2024-07-03] MEDS ORDERED: FENTANYL CITR 100 MCG/2 ML ONE (10:10)
--- NOTE | 2024-07-03 10:21 | RAD REPORT ---
EXAMINATION: CT ABDOMEN AND PELVIS WITH CONTRAST CLINICAL INDICATION: recent duodenal perforation, upper abd pain;Abd pain TECHNIQUE: CT abdomen and pelvis was performed, after the administration of IV contrast, as per [facility]. Axial, sagittal and coronal reconstructions were obtained. One or more of the following dose reduction techniques were used: Automated exposure control, adjustment of the mA and k V according to patient size, and iterative reconstruction. Unless otherwise specified, incidental findings do not require dedicated imaging follow-up. COMPARISON: 05/26/2024 FINDINGS: LOWER CHEST: Mild linear atelectasis in the left lung base. Small hiatal hernia with gastric banding noted. LIVER: Liver contains small low-density lesion in the right lobe anteriorly likely small cyst. Slight ly intermediate density superior anterior right lobe lesion measuring 10 mm noted. These appear unchanged over time. Grossly unremarkable gallbladder. SPLEEN: Normal size. No focal lesion. PANCREAS: No mass, ductal dilation, or mila-pancreatic fluid. ADRENALS: Normal; no mass. KIDNEYS: Normal size and contour. No hydronephrosis. GASTROINTESTINAL TRACT: No evidence of free air, significant intra-abdominal free fluid, bowel obstru ction or abscess. Moderate stool is present throughout the colon. APPENDIX: Normal appendix. LYMPH NODES: No lymphadenopathy. MUSCULOSKELETAL: No acute or suspicious osseous abnormality. ADDITIONAL FINDINGS: None. IMPRESSION: No acute or concerning abnormalities seen in the abdomen or pelvis.
--- NOTE | 2024-07-03 11:59 | EDPHYS ---
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 08:57 The patient presents with abdominal pain in the epigastric area, in the upper abdomen, rn in the periumbilical area. Onset: The symptoms/episode began/occurred 3 week(s) ago. The symptoms do not radiate. Associated signs and symptoms: Pertinent negatives: blood in stools, chest pain, constipation, fever, hematuria. The symptoms are described as achy. Modifying factors: The symptoms are alleviated by nothing, the symptoms are aggravated by touching the area. Severity of pain: At its worst the pain was moderate in the emergency department the pain has improved. The patient has experienced a previous episode. Patient reports mid and upper abdominal pain that started a few weeks ago following surgery for perforated duodenal ulcer. There was a period briefly that patient was not taking her Protonix but now back on it. Patient states that this pain does not feel like when had her perforation in the past. Called her surgeon Dr. Zaragoza who directed her here today. Denies any bowel or bladder issues. No fever. No blood in stool. Still having aching pain that she thought would have gone away by now so family convinced her to come in today.. Historical: - Allergies: 08:31 Hydrocodone-Acetaminophen; hb - PMHx: 08:31 GI Bleed; insomnia; hb - PSHx: 08:31 Perforated Duodenal Ulcer; hb - Immunization history:: Adult Immunizations up to date. - Infectious Disease History:: Denies. - Social history:: Smoking status: Patient denies any tobacco usage or history of. - Family history:: not pertinent. - Hospitalizations: : The patient was recently seen at [facility]. ROS: 08:57 Constitutional: Negative for fever, chills, and weight loss, Cardiovascular: Negative rn for chest pain, palpitations, and edema, Respiratory: Negative for shortness of breath, cough, wheezing, and pleuritic chest pain, Abdomen/GI: Positive for abdominal pain Back: Negative for injury and pain, MS/Extremity: Negative for injury and deformity, Skin: Negative for injury, rash, and discoloration, Neuro: Negative for headache, weakness, numbness, tingling, and seizure, Exam: 08:57 Constitutional: This is a well developed, well nourished patient who is awake, alert, rn and in no acute distress. Cardiovascular: Regular rate and rhythm. No pulse deficits. Respiratory: No increased work of breathing, no retractions or nasal flaring. Abdomen/GI: Soft, mild epigastric and periumbilical tenderness. Wound is well-healed, no signs of cellulitis. Small swelling noted under epigastric region, possible seroma Vital Signs: 08:29 BP 146 / 82; Pulse 70; Resp 16; Temp 97.9(TE); Pulse Ox 99% on R/A; Pain 6/10; hb 10:01 BP 133 / 83; Pulse 65; Resp 17; Pulse Ox 98% on R/A; rs5 11:00 BP 121 / 80; Pulse 61; Resp 17; Pulse Ox 99% on R/A; rs5 12:07 BP 125 / 77; Pulse 67; Resp 17; Pulse Ox 99% ; rs5 08:29 Pain Scale: Adult hb MDM: 08:14 Patient medically screened. rn 11:53 Differential diagnosis: appendicitis, bowel obstruction, diverticulitis, gastritis, rn gastroesophageal reflux disease, non-specific abd pain, pancreatitis. Data reviewed: vital signs, nurses notes, lab test result(s), radiologic studies, CT scan, and as a result, I will discharge patient. Counseling: I had a detailed discussion with the patient and/or guardian regarding the historical points, exam findings, and any diagnostic results supporting the discharge/admit diagnosis, lab results, radiology results, the need for outpatient follow up, to return to the emergency department if symptoms worsen or persist or if there are any questions or concerns that arise at home. Special discussion: Based on the patient's Hx, exam, and Dx evaluation, there is no indication for emergent surgery or inpatient Tx. It is understood by the patient/guardian that if the Sx's persist or worsen they need to return immediately for re-evaluation. I discussed with the patient/guardian in detail that at this point there is no indication for admission to the hospital. It is understood, however, that if the symptoms persist or worsen the patient needs to return immediately for re-evaluation. 11:53 ED course: I have personally reviewed all of the results, including but not limited to rn blood tests and imaging deemed necessary to safely discharge this patient at this time. All results given to and printed out for patient. I personally went over all the results with the patient and answered all questions. Patient will follow-up with PCP and or specialist as discussed. Return precautions given and understood.. 07/03 08:35 Order name: CBC with Diff; Complete Time: 09:06 rn 07/03 08:35 Order name: CMP; Complete Time: 09:29 rn 07/03 08:35 Order name: Lipase; Complete Time: 09:29 rn 07/03 08:57 Order name: Urinalysis w/ reflexes; Complete Time: 09:29 rn 07/03 08:35 Order name: CT Abd/Pelvis - IV Contrast Only; Complete Time: 11:49 rn 07/03 08:35 Order name: IV Saline Lock; Complete Time: 08:54 rn 07/03 08:35 Order name: Labs collected and sent; Complete Time: 08:54 rn Administered Medications: 10:10 Drug: fentaNYL (PF) IVP 50 mcg IVP once Route: IVP; Site: right antecubital; rs5 10:30 Follow up: Response: No adverse reaction; Pain is decreased rs5 Disposition Summary: 07/03/24 11:59 Discharge Ordered Notes: Location: Home rn Problem: new rn Symptoms: have improved rn Condition: Stable rn Diagnosis - Abdominal pain, unspecified rn Followup: rn - With: Private Physician - When: As needed - Reason: Recheck today's complaints, Re-evaluation by your physician Discharge Instructions: - Discharge Summary Sheet rn - Abdominal Pain, Adult rn Forms: - Medication Reconciliation Form rn - Antibiotic creative services intern - Prescription Opioid Use rn - Patient Portal Instructions rn - Leadership Thank You Letter rn Signatures: Dispatcher [employer] Karthikeyan Mix MD MD rn Baxter, Heather, RN RN hb Sotelo, Ricky, RN RN rs5 Corrections: (The following items were deleted from the chart) 08:32 08:31 PSHx: Perforated Duodenal Ulcer (insomnia); hb hb
--- NOTE | 2024-07-03 11:59 | ER ---
Nurse's Notes [facility] Name: Valerie Gandara Age: 63 yrs Sex: Female : 1960 Arrival Date: 07/03/2024 Time: 08:08 Bed 19 Private MD: Diagnosis: Abdominal pain, unspecified Presentation: 07/03 08:29 Chief complaint: Had perforated duodenal ulcer repair by Dr. Zaragoza on 05/22, c/o hb worsening abdominal pain that radiates to back x 2 weeks. Coronavirus screen: At this time, the client does not indicate any symptoms associated with coronavirus-19. Ebola Screen: No symptoms or risks identified at this time. Initial Sepsis Screen: Does the patient meet any 2 criteria? No. Patient's initial sepsis screen is negative. Does the patient have a suspected source of infection? No. Patient's initial sepsis screen is negative. Risk Assessment: Do you want to hurt yourself or someone else? Patient reports no desire to harm self or others. Onset of symptoms was May 2024. 08:29 Method Of Arrival: Ambulatory hb 08:29 Acuity: PARMINDER 3 hb Historical: - Allergies: 08:31 Hydrocodone-Acetaminophen; hb - PMHx: 08:31 GI Bleed; insomnia; hb - PSHx: 08:31 Perforated Duodenal Ulcer; hb - Immunization history:: Adult Immunizations up to date. - Infectious Disease History:: Denies. - Social history:: Smoking status: Patient denies any tobacco usage or history of. - Family history:: not pertinent. - Hospitalizations: : The patient was recently seen at [facility]. Screenin:25 [facility] ED Fall Risk Assessment (Adult) History of falling in the last 3 months, rs5 including since admission No falls in past 3 months (0 pts) Confusion or Disorientation No (0 pts) Intoxicated or Sedated No (0 pts) Impaired Gait No (0 pts) Mobility Assist Device Used No (0 pt) Altered Elimination No (0 pt) Score/Fall Risk Level 0 - 2 = Low Risk Oriented to surroundings, Maintained a safe environment. Abuse screen: Denies threats or abuse. Nutritional screening: No deficits noted. Tuberculosis screening: No symptoms or risk factors identified. Assessment: 08:23 General: Appears in no apparent distress. uncomfortable, Behavior is calm, cooperative. rs5 Pain: Complains of pain in abdomen Pain currently is 5 out of 10 on a pain scale. Quality of pain is described as aching, Is continuous. Neuro: Level of Consciousness is awake, alert, obeys commands, Oriented to person, place, time, situation. Cardiovascular: Patient's skin is warm and dry. Respiratory: Airway is patent Respiratory effort is even, unlabored, Respiratory pattern is regular, symmetrical. GI: Bowel sounds present X 4 quads. Abd is soft and non tender X 4 quads. Patient currently denies nausea. : No signs and/or symptoms were reported regarding the genitourinary system. EENT: No signs and/or symptoms were reported regarding the EENT system. Derm: Skin is intact, Skin is pink, warm \T\ dry. Musculoskeletal: Range of motion: intact in all extremities. 09:33 Reassessment: Patient and/or family updated on plan of care and expected duration. Pain rs5 level reassessed. Patient is alert, oriented x 3, equal unlabored respirations, skin warm/dry/pink. 10:01 Pain: Complains of pain in abdomen Pain currently is 9 out of 10 on a pain scale. rs5 Quality of pain is described as aching, Is continuous. 10:02 Reassessment: provider notified pt is experiencing pain . rs5 11:10 Reassessment: Patient and/or family updated on plan of care and expected duration. Pain rs5 level reassessed. Patient is alert, oriented x 3, equal unlabored respirations, skin warm/dry/pink. Patient states feeling better. Patient states symptoms have improved. 12:07 Reassessment: No changes from previously documented assessment. rs5 Vital Signs: 08:29 BP 146 / 82; Pulse 70; Resp 16; Temp 97.9(TE); Pulse Ox 99% on R/A; Pain 6/10; hb 10:01 BP 133 / 83; Pulse 65; Resp 17; Pulse Ox 98% on R/A; rs5 11:00 BP 121 / 80; Pulse 61; Resp 17; Pulse Ox 99% on R/A; rs5 12:07 BP 125 / 77; Pulse 67; Resp 17; Pulse Ox 99% ; rs5 08:29 Pain Scale: Adult hb ED Course: 08:13 Patient arrived in ED. im 08:14 Karthikeyan Mares MD is Attending Physician. rn 08:22 Willian Simon, RN is Primary Nurse. rs5 08:25 Patient has correct armband on for positive identification. Placed in gown. Bed in low rs5 position. Call light in reach. Side rails up X2. 08:25 No provider procedures requiring assistance completed. rs5 08:30 Triage completed. hb 08:32 Patient placed. hb 08:55 Inserted saline lock: 20 gauge in right antecubital area, using aseptic technique. rs5 Blood collected. Flushed with 10 mL NS. 10:03 CT Abd/Pelvis - IV Contrast Only In Process Unspecified. EDMS 12:07 Provided Education on: discharge instructions . rs5 12:07 IV discontinued, intact, bleeding controlled, No redness/swelling at site. Pressure rs5 dressing applied. Administered Medications: 10:10 Drug: fentaNYL (PF) IVP 50 mcg IVP once Route: IVP; Site: right antecubital; rs5 10:30 Follow up: Response: No adverse reaction; Pain is decreased rs5 Medication: 11:00 VIS not applicable for this client. rs5 Outcome: 11:59 Discharge ordered by . rn 12:07 Discharged to home ambulatory, rs5 12:07 Condition: stable 12:07 Discharge instructions given to patient, family, Instructed on discharge instructions, follow up and referral plans. Demonstrated understanding of instructions, follow-up care, 12:08 Patient left the ED. rs5 Signatures: Dispatcher [employer] EDME Karthikeyan Mares MD MD rn Baxter, Heather, RN RN Willian Simon, REBECCA FERNANDEZ rs5 Aida Moore Corrections: (The following items were deleted from the chart) 08:32 08:31 PSHx: Perforated Duodenal Ulcer (insomnia); hb hb 11:00 10:59 BP 137 / 81; Pulse 74bpm; Resp 17bpm; Pulse Ox 99% RA; rs5 rs5 11:10 10:41 Reassessment: No changes from previously documented assessment. rs5 rs5
[2024-07-03 12:37] VITALS: TEMP 97.9; O2SAT 99
[2024-07-03 12:40] VITALS: BP 125/77
== END 2024-07-03 12:08 | disposition home or self-care (01) ==
LOC: ER 08:08
DX: R10.13 Epigastric pain (principal); Z98.890 Other specified postprocedural states
CPT/HCPCS: 85025; 36415; 81003; 83690; 80053; 74177; Q9967; J3010; 96374; 99284